=== PATIENT | male | born 1965 | race Caucasian/White ===

== ENCOUNTER 2016-09-28 19:52 | Inpatient (IN) | payer SELFPAY ==
[2016-09-28] VITALS (14 sets, daily range): BP systolic 109–244; BP diastolic 60–130; PULSE 109–139; RESP 18–24; TEMP 98.7; O2SAT 95–100
[~2016-09-28] VITALS: Ht 177.8 cm; Wt 118.0 kg
[~2016-09-28 19:52] MED LIST: HYDR12.56 PO; PRIL20TA2 PO
[2016-09-28] MEDS ORDERED: PANTOPRAZOLE INJ 80 MG in SODIUM CHLORIDE 0.9% INJ 35 ML IV ONE (20:15)
[2016-09-28] MEDS ORDERED: OCTREOTIDE INJ 500 MCG in SODIUM CHLORID 0.9% 500 ML INJ 500 ML IV SCH (20:15)
[2016-09-28] MEDS ORDERED: SODIUM CHLORIDE 0.9% FLUSH 5 ML FLUSH IVF PRN (20:15)
[2016-09-28] MEDS ORDERED: ETOMIDATE 40 MG/20 ML VIAL ONE (20:23)
[2016-09-28] MEDS ORDERED: OMEP20TA PO (20:23)
[2016-09-28] MEDS ORDERED: SUCCINYLCHOLINE CHLORIDE 200 MG/10 ML VIAL ONE (20:23)
[2016-09-28] MEDS ORDERED: PROPOFOL 1000 MG/100 ML INJ 100 ML ONE (20:34)
[2016-09-28] MEDS ORDERED: ETOMIDATE 20 MG/10 ML VIAL IV PUSH ONE (20:45)
[2016-09-28] MEDS ORDERED: SUCCINYLCHOLINE CHLORIDE 200 MG/10 ML VIAL IV PUSH ONE (20:45)
[2016-09-28] MEDS: PROPOFOL 1000 MG/100 ML INJ 100 ML IV SCH (20:46)
[2016-09-28 20:48] LABS: AUTOMATED NEUTROPHIL # 13.9 TH/MM3 (1.8-7.7); BASOPHIL # 0.1 TH/MM3 (0-0.2); BASOPHIL % 0.4 % (0.0-2.0); EOSINOPHIL % 0.1 % (0.0-4.0); HEMATOCRIT 33.1 % (39.0-51.0); HEMO FLAGS DIFF FINAL; LYMPH % 7.3 % (9.0-44.0); LYMPHOCYTE # 1.2 TH/MM3 (1.0-4.8); MEAN CELL VOLUME 94.7 FL (80.0-100.0); MEAN CORPUSCULAR HEMOGLOBIN 32.6 PG (27.0-34.0); MEAN CORPUSCULAR HGB CONC 34.4 % (32.0-36.0); MONO % 7.3 % (0.0-8.0); NEUT % 84.9 % (16.0-70.0); PLATELET COUNT 124 TH/MM3 (150-450); RED BLOOD COUNT 3.49 MIL/MM3 (4.50-5.90); RED CELL DISTRIBUTION WIDTH 13.9 % (11.6-17.2); WHITE BLOOD COUNT 16.4 TH/MM3 (4.0-11.0)
[2016-09-28 21:12] LABS: INTERNATIONAL NORMALIZED RATIO 1.5 RATIO; PROTHROMBIN TIME - PATIENT 16.3 SEC (9.8-11.6)
[2016-09-28] MEDS ORDERED: LACTULOSE SYRUP 20 GM/30 ML CUP OG-TUBE ONE (21:30)
[2016-09-28] MEDS ORDERED: fentaNYL DRIP 250 ML IV SCH ×2 (21:30→21:45)
[2016-09-28] MEDS ORDERED: fentaNYL DRIP 250 ML ONE (21:31)
--- NOTE | 2016-09-28 21:33 | PD ---
HPI Chief Complaint: Altered Mental Status Time Seen by Provider: 20:06 Travel History International Travel<30 days: No Contact w/Intl Traveler<30days: No Traveled to known affect area: No History of Present Illness HPI 50yo M with PMH of hep C, chronic alcohol abuse, cirrhosis presents to the ED with altered mental status, and hematemesis today. Pt has been having distended abdomen for quite some time. As per EVAC, pt was informed that he was going to 5 years ago but continues to drink daily. Pt opens eyes to movement but is not answering question. Becomes agitated and moves extremities but not to command. Pt is confused and actively vomiting black emesis. Pt emergently intubated in the ED. PFSH Past Medical History Anemia: Yes (RECENT GI BLEED) Gastrointestinal Disorders: Yes (GI BLEED) GERD: Yes Hypertension: Yes Social History Alcohol Use: Yes Tobacco Use: No Substance Use: No Allergies-Medications (Allergen,Severity, Reaction): Coded Allergies: No Known Allergies (Unverified , 09/28/16) Reported Meds & Prescriptions Reported Meds & Active Scripts Active Reported Omeprazole 20 Mg Tab 20 Mg PO DAILY Review of Systems ROS Limitations: Altered Mental Status Physical Exam Narrative GENERAL: 50yo M with altered mental status. SKIN: Warm and dry. HEAD: Atraumatic. Normocephalic. EYES: Pupils equal and round. No scleral icterus. No injection or drainage. ENT: No nasal bleeding or discharge. Mucous membranes pink and moist. NECK: Trachea midline. No JVD. CARDIOVASCULAR: Tachycardic at 114bpm. No murmur appreciated. RESPIRATORY: No accessory muscle use. Clear to auscultation. Breath sounds equal bilaterally. GASTROINTESTINAL: Abdomen distended. No point tenderness elicited on exam. MUSCULOSKELETAL: No obvious deformities. No clubbing. No cyanosis. No edema. NEUROLOGICAL: Lethargic. Opens eyes but not spontaneously. Withdraws from pain in extremities. Data Data Last Documented VS Vital Signs Date Time Temp Pulse Resp B/P Pulse Ox O2 Delivery O2 Flow Rate FiO2 09/28/16 21:14 132 139/101 100 Ventilator 09/28/16 20:55 98.7 09/28/16 20:45 100 09/28/16 20:17 18 Orders Complete Blood Count With Diff (09/28/16 20:07) Comprehensive Metabolic Panel (09/28/16 20:07) Lipase (09/28/16 20:07) Ammonia (09/28/16 20:07) Prothrombin Time / Inr (Pt) (09/28/16 20:07) Act Partial Throm Time (Ptt) (09/28/16 20:07) Alcohol (Ethanol) (09/28/16 20:07) Urinalysis - C+S If Indicated (09/28/16 20:07) Type And Screen (09/28/16 20:07) Ecg Monitoring (09/28/16 20:07) Iv Access Insert/Monitor (09/28/16 20:07) Oximetry (09/28/16 20:07) Sodium Chloride 0.9% Flush (Ns Flush) (09/28/16 20:15) Octreotide Inj (Sandostatin Inj) (09/28/16 20:15) Pantoprazole Inj (Protonix Inj) (09/28/16 20:15) Pantoprazole Inj (Protonix Inj) (09/28/16 20:15) Blood Culture (09/28/16 20:07) Lactic Acid Sepsis Protocol (09/28/16 20:07) Ct Brain W/O Iv Contrast(Rout) (09/28/16 ) Etomidate Inj (Amidate Inj) (09/28/16 20:23) Succinylcholine Inj (Quelicin Inj) (09/28/16 20:23) Propofol 1000 Mg/100 Ml Inj (Diprivan 10 (09/28/16 20:34) Chest, Single Ap (09/28/16 ) Propofol 1000 Mg/100 Ml Inj (Diprivan 10 (09/28/16 20:45) ^ Infusion (09/28/16 20:39) RASS (09/28/16 20:39) Neurological Rass Scale CARLOS ALBERTO.Q2H (09/28/16 20:39) Succinylcholine Inj (Quelicin Inj) (09/28/16 20:45) Etomidate Inj (Amidate Inj) (09/28/16 20:45) Restraints Non-Violent CARLOS ALBERTO.Q3H (09/28/16 20:56) Insert Temp Sensing Chi Cath (09/28/16 20:56) Claudia-Gastric Tube Insert/Mon (09/28/16 20:56) Troponin I (09/28/16 20:58) Fentanyl Drip (Fentanyl Drip) (09/28/16 21:30) Lactulose Liq (Lactulose Liq) (09/28/16 21:30) Fentanyl Drip (Fentanyl Drip) (09/28/16 21:31) Electrocardiogram (09/28/16 18:55) Admit Order (Ed Use Only) (09/28/16 21:34) Labs Laboratory Tests Test 09/28/16 09/28/16 20:20 20:50 White Blood Count 16.4 TH/MM3 Red Blood Count 3.49 MIL/MM3 Hemoglobin 11.4 GM/DL Hematocrit 33.1 % Mean Corpuscular Volume 94.7 FL Mean Corpuscular Hemoglobin 32.6 PG Mean Corpuscular Hemoglobin 34.4 % Concent Red Cell Distribution Width 13.9 % Platelet Count 124 TH/MM3 Mean Platelet Volume 10.5 FL Neutrophils (%) (Auto) 84.9 % Lymphocytes (%) (Auto) 7.3 % Monocytes (%) (Auto) 7.3 % Eosinophils (%) (Auto) 0.1 % Basophils (%) (Auto) 0.4 % Neutrophils # (Auto) 13.9 TH/MM3 Lymphocytes # (Auto) 1.2 TH/MM3 Monocytes # (Auto) 1.2 TH/MM3 Eosinophils # (Auto) 0.0 TH/MM3 Basophils # (Auto) 0.1 TH/MM3 CBC Comment DIFF FINAL Differential Comment Prothrombin Time 16.3 SEC Prothromb Time International 1.5 RATIO Ratio Activated Partial 33.0 SEC Thromboplast Time Lactic Acid Level 4.6 mmol/L Ammonia 100 MCMOL/L Blood Type B POSITIVE Antibody Screen NEGATIVE Urine Color YELLOW Urine Turbidity CLEAR Urine pH 7.0 Urine Specific Jackson 1.031 Urine Protein TRACE mg/dL Urine Glucose (UA) NEG mg/dL Urine Ketones 10 mg/dL Urine Occult Blood NEG Urine Nitrite NEG Urine Bilirubin NEG Urine Urobilinogen 4.0 MG/DL Urine Leukocyte Esterase NEG Urine RBC 1 /hpf Urine WBC 2 /hpf Urine Renal Epithelial Cells <1 /hpf Urine Mucus FEW /lpf Microscopic Urinalysis Comment CULT NOT INDICATED MDM Medical Decision Making Medical Screen Exam Complete: Yes Emergency Medical Condition: Yes Interpretation(s) Laboratory Tests Test 09/28/16 09/28/16 20:20 20:50 White Blood Count 16.4 TH/MM3 (4.0-11.0) Red Blood Count 3.49 MIL/MM3 (4.50-5.90) Hemoglobin 11.4 GM/DL (13.0-17.0) Hematocrit 33.1 % (39.0-51.0) Mean Corpuscular Volume 94.7 FL (80.0-100.0) Mean Corpuscular Hemoglobin 32.6 PG (27.0-34.0) Mean Corpuscular Hemoglobin 34.4 % Concent (32.0-36.0) Red Cell Distribution Width 13.9 % (11.6-17.2) Platelet Count 124 TH/MM3 (150-450) Mean Platelet Volume 10.5 FL (7.0-11.0) Neutrophils (%) (Auto) 84.9 % (16.0-70.0) Lymphocytes (%) (Auto) 7.3 % (9.0-44.0) Monocytes (%) (Auto) 7.3 % (0.0-8.0) Eosinophils (%) (Auto) 0.1 % (0.0-4.0) Basophils (%) (Auto) 0.4 % (0.0-2.0) Neutrophils # (Auto) 13.9 TH/MM3 (1.8-7.7) Lymphocytes # (Auto) 1.2 TH/MM3 (1.0-4.8) Monocytes # (Auto) 1.2 TH/MM3 (0-0.9) Eosinophils # (Auto) 0.0 TH/MM3 (0-0.4) Basophils # (Auto) 0.1 TH/MM3 (0-0.2) CBC Comment DIFF FINAL Differential Comment Prothrombin Time 16.3 SEC (9.8-11.6) Prothromb Time International 1.5 RATIO Ratio Activated Partial 33.0 SEC Thromboplast Time (24.3-30.1) Lactic Acid Level 4.6 mmol/L (0.4-2.0) Ammonia 100 MCMOL/L (11-32) Blood Type B POSITIVE Antibody Screen NEGATIVE Urine Color YELLOW (YELLW/STRAW) Urine Turbidity CLEAR (CLEAR) Urine pH 7.0 (5.0-8.5) Urine Specific Jackson 1.031 (1.002-1.035) Urine Protein TRACE mg/dL (NEG-TRACE) Urine Glucose (UA) NEG mg/dL (NEG) Urine Ketones 10 mg/dL (NEG) Urine Occult Blood NEG (NEG) Urine Nitrite NEG (NEG) Urine Bilirubin NEG (NEG) Urine Urobilinogen 4.0 MG/DL (LESS THAN 2.0) Urine Leukocyte Esterase NEG (NEG) Urine RBC 1 /hpf (0-3) Urine WBC 2 /hpf (0-5) Urine Renal Epithelial Cells <1 /hpf (NONE) Urine Mucus FEW /lpf (OCC) Microscopic Urinalysis Comment CULT NOT INDICATED Differential Diagnosis Hepatic encephalopathy vs. Variceal bleed vs. sepsis Narrative Course 50yo M with cirrhosis here with altered mental status. Pt is actively vomiting coffee ground emesis. Impression is hepatic encephalopathy with upper GI bleed. Pt emergently intubated. BP initially 167/90. HR 114. Labs reviewed, leukocytosis at 16.4. H/H 11.4/33.1. Thrombocytopenia at 124. Ammonia is elevated at 100. Lactulose ordered via OG tube. Lactic acid elevated at 4.6. CMP is still pending. Pt placed on octreotide drip and pantoprazole bolus and drip. Pt sedated with propofol and fentanyl. CXR showed ET tube at heidi, suggest pullback by 3cm. No PTX. Discussed pt with Dr. Box and Dr. King and accepted to Dr. King's service. Critical Care Narrative Aggregate critical care time was 50 minutes. Time to perform other separately billable procedures was not included in the critical care time. My time did not include minutes spent treating any other patients simultaneously or on activities that did not directly contribute to the patient's treatment. The services I provided to this patient were to treat and/or prevent clinically significant deterioration that could result in: cardiovascular collapse or . I provided critical care services requiring my management, as noted below: Chart data review, documentation time, medication orders and management, vital sign assessments/reviewing monitor data, ordering and reviewing lab tests, ordering and interpreting/reviewing x-rays and diagnostic studies, care of the patient and discussion of the patient with the admitting physicians. Procedures Procedure Narrative The patient was put in optimal position for the procedure. Rapid sequence intubation was initiated by me using 30 milligrams of etomidate IV and 150 milligrams of succinylcholine IV. The patient was intubated with a 8.0 cuffed endotracheal tube. Tube placement was confirmed by visualization of the tube and balloon passing through the cords, capnometry and subsequent chest x-ray. Breath sounds were equal and well aerated bilaterally postintubation. No breath sounds over stomach. Patient tolerated procedure well. Diagnosis Primary Impression: Hepatic encephalopathy Additional Impression: GI bleed Qualified Code: K92.1 - Gastrointestinal hemorrhage with melena Admitting Information Admitting Physician Requests: Admit Danii De Jesus DO Sep 28, 2016 21:33
[2016-09-28] MEDS ORDERED: METOCLOPRAMIDE HCL 10 MG/2 ML VIAL IV PRN (21:45)
[2016-09-28] MEDS ORDERED: SODIUM CHLORIDE 0.9% FLUSH 5 ML FLUSH IV FLUSH PRN (21:45)
[2016-09-28] MEDS ORDERED: MIDAZOLAM 100 MG/ML INJ 100 ML IV SCH (21:45)
[2016-09-28] MEDS ORDERED: MORPHINE SULFATE 4 MG/ML INJ IV PRN (21:45)
[2016-09-28] MEDS ORDERED: CHLORHEXIDINE GLUCONATE 2 % 1 PACK (2 CLOTHS) TOP PRN (21:45)
[2016-09-28] MEDS ORDERED: LORazepam 2 MG/ML VIAL IV PRN (21:45)
[2016-09-28] MEDS ORDERED: MISCELLANEOUS NURSING INFORMATION XX SCH (21:45)
[2016-09-28] MEDS ORDERED: PANTOPRAZOLE SODIUM 40 MG VIAL IV SCH (21:45)
[2016-09-28] MEDS ORDERED: ACETAMINOPHEN 325 MG TAB PO PRN (21:45)
[2016-09-28] MEDS ORDERED: ONDANSETRON HCL 4 MG/2 ML VIAL IV PRN (21:45)
--- NOTE | 2016-09-28 21:46 | HHI.HP ---
HPI Service Critical Care Medicine Primary Care Physician No Primary Care Physician Admission Diagnosis GI bleed, hepatic encaphalopathy Diagnosis: Travel History International Travel<30 Days: No Contact w/Intl Traveler <30 Da: No Traveled to Known Affected Are: No History of Present Illness 50-year-old gentleman with past medical history of hepatitis C, chronic alcohol abuse, cirrhosis, previous upper GI bleed, presents today with altered mental status. He has been having distended abdomen for quite sometime time. He was found completely altered almost unresponsive by his significant other called EVAC. Per her statement patient was informed that he was going to 5 years ago if he continues to drink alcohol. He has been drinking daily until today. He was very altered and extremely agitated in the emergency department and was intubated for airway protection by ER attending. Review of Systems ROS Unable to obtain patient is intubated Past Family Social History Allergies: Coded Allergies: No Known Allergies (Unverified , 09/28/16) Past Medical History Alcoholic liver cirrhosis Upper GI bleed Ascites Past Surgical History Unable to obtain Reported Medications Reported Meds & Active Scripts Active Reported Omeprazole 20 Mg Tab 20 Mg PO DAILY Active Ordered Medications Current Medications Medications (Trade) Dose Ordered Sig/Theresa Route PRN Reason Start Time Stop Time Status Last Admin Dose Admin Octreotide Acetate 500 mcg/ Sodium Chloride 500.5 ml @ 50 mls/hr Q10H IV 09/28/16 20:15 09/29/16 00:59 09/28/16 21:52 Pantoprazole Sodium 80 mg/ Sodium Chloride 100 ml @ 10 mls/hr Q10H IV 09/28/16 20:15 09/28/16 21:51 Propofol 100 ml @ 0 mls/hr TITRATE IV 09/28/16 20:45 09/28/16 20:46 Sodium Chloride (NS 1000 ml Inj) 1,000 ml @ 125 mls/hr Q8H IV 09/28/16 22:00 09/28/16 23:22 IV Flush (NS Flush) 2 ml UNSCH PRN IV FLUSH FLUSH AFTER USING IV ACCESS 09/28/16 21:45 IV Flush (NS Flush) 2 ml BID IV FLUSH 09/29/16 09:00 Acetaminophen (Tylenol) 650 mg Q6H PRN PO PAIN 1-10 AND/OR FEVER >101F 09/28/16 21:45 Morphine Sulfate (Morphine Inj) 2 mg Q2H PRN IV PAIN SCALE 6 TO 10 09/28/16 21:45 Lorazepam (Ativan Inj) 1 mg Q1H PRN IV Agitation/Sedation 09/28/16 21:45 Artificial Tears (Tears Naturale Opth Soln) 1 drop TID EACH EYE 09/29/16 09:00 Ondansetron HCl (Zofran Inj) 4 mg Q6H PRN IV NAUSEA OR VOMITING 09/28/16 21:45 Metoclopramide HCl (Reglan Inj) 10 mg Q6H PRN IV NAUSEA OR VOMITING 09/28/16 21:45 Docusate Sodium (Colace Liq) 100 mg Q12H G-TUBE 09/28/16 22:00 09/28/16 23:22 Miscellaneous Information 1 [id number] XX 09/28/16 21:45 Chlorhexidine Gluconate (Chlorhexidine 2% Cloth) 3 pack Taper DAILY@04 TOP 09/29/16 04:00 09/25/17 03:59 Chlorhexidine Gluconate 3 pack 3 pack UNSCH PRN TOP HYGIENIC CARE 09/28/16 21:45 Fentanyl Citrate 250 ml @ 0 mls/hr TITRATE IV 09/28/16 21:45 Midazolam HCl 100 ml @ 0 mls/hr TITRATE IV 09/28/16 21:45 Ceftriaxone Sodium/Sodium Chloride (Rocephin Inj/NS Inj) 100 ml @ 200 mls/hr Q24H IV 09/28/16 22:00 10/04/16 22:29 09/28/16 23:23 Lactulose 30 ml 30 ml QID PO 09/29/16 09:00 Octreotide Acetate/Sodium Chloride (SandoSTATIN INJ/ NS 500 ml Inj) 500.0 ml @ 25 mls/hr Q20H IV 09/29/16 01:00 Family History Noncontributory Social History Drinks vodka daily Smokes pack per day Denies illicit drug abuse Physical Exam Vital Signs Vital Signs Date Time Temp Pulse Resp B/P Pulse Ox O2 Delivery O2 Flow Rate FiO2 09/28/16 21:44 112 110/61 100 Ventilator 09/28/16 21:14 132 139/101 100 Ventilator 09/28/16 21:03 132 217/105 100 Ventilator 09/28/16 20:55 98.7 139 244/130 100 Ventilator 09/28/16 20:45 98 100 09/28/16 20:17 109 18 167/90 99 Room Air 09/28/16 19:54 117 24 167/90 95 Physical Exam GENERAL: Disheveled elderly man SKIN: Warm and dry. HEAD: Normocephalic. EYES: Positive scleral icterus. No injection or drainage. NECK: Supple, trachea midline. No JVD or lymphadenopathy. CARDIOVASCULAR: Regular rate and rhythm without murmurs, gallops, or rubs. RESPIRATORY: Breath sounds equal bilaterally. No accessory muscle use. GASTROINTESTINAL: Abdomen soft, non-tender, ascites MUSCULOSKELETAL: No cyanosis, plus pitting edema In all 4 extremities BACK: Nontender without obvious deformity. No CVA tenderness. Laboratory Laboratory Tests Test 09/28/16 20:20 White Blood Count 16.4 Red Blood Count 3.49 Hemoglobin 11.4 Hematocrit 33.1 Mean Corpuscular Volume 94.7 Mean Corpuscular Hemoglobin 32.6 Mean Corpuscular Hemoglobin 34.4 Concent Red Cell Distribution Width 13.9 Platelet Count 124 Mean Platelet Volume 10.5 Neutrophils (%) (Auto) 84.9 Lymphocytes (%) (Auto) 7.3 Monocytes (%) (Auto) 7.3 Eosinophils (%) (Auto) 0.1 Basophils (%) (Auto) 0.4 Neutrophils # (Auto) 13.9 Lymphocytes # (Auto) 1.2 Monocytes # (Auto) 1.2 Eosinophils # (Auto) 0.0 Basophils # (Auto) 0.1 CBC Comment DIFF FINAL Differential Comment Prothrombin Time 16.3 Prothromb Time International 1.5 Ratio Activated Partial 33.0 Thromboplast Time Lactic Acid Level 4.6 Ammonia 100 Blood Type B POSITIVE Antibody Screen NEGATIVE Result Diagram: 09/28/162019 Assessment and Plan Problem List: (1) Hepatic encephalopathy ICD Code: K72.90 Status: Acute (2) GI bleed ICD Code: K92.2 Status: Acute Assessment and Plan Upper GI bleeding - Due to alcoholic liver cirrhosis - Protonix IV twice a day - Octreotide drip - GI consult - Rocephin prophylactically End-stage liver disease with cirrhosis - Monitor coagulopathy - Palliative care consult - Supportive care Encephalopathy - Hyperammonemia - Lactulose 4 times a day - Monitor trend daily Alcohol dependency - Versed drip - CIWA protocol DVT GI prophylaxis - Teds SCDs Protonix twice a day Critical Care: The total critical care time was 35 minutes. Time to perform other separately billable procedures was not included in the critical care time. Problem Qualifiers (1) GI bleed: Qualified Code: K92.1 - Gastrointestinal hemorrhage with melena Ashish King MD Sep 28, 2016 21:45
[2016-09-28] MEDS: PANTOPRAZOLE INJ 80 MG in SODIUM CHLORIDE 0.9% INJ 100 ML IV SCH (21:51)
--- NOTE | 2016-09-28 21:55 | RADRPT ---
EXAM DATE/TIME: 09/28/2016 21:14 [facility] COMPARISON: No previous studies available for comparison. INDICATIONS : Post intubation. MEDICAL HISTORY : Unobtainable. SURGICAL HISTORY : Unobtainable. ENCOUNTER: Initial ACUITY: 1 day PAIN SCORE: Non-responsive. LOCATION: Bilateral chest FINDINGS: There is an endotracheal tube in place. The tip is at the heidi. There is an NG tube in the stomach. No pneumothorax. The lungs are grossly clear. The heart size is mildly enlarged. The bony structures are grossly intact. CONCLUSION: 1. ET tube tip at heidi. Suggest pullback by 3 cm. 2. No evidence of pneumothorax. Navin Feng MD on September 28, 2016 at 21:52 Board Certified Radiologist. This report was verified electronically.
[2016-09-28 22:23] LABS: BLOOD GAS BASE EXCESS 0.5 mmol/L (-2-2); BLOOD GAS CARBOXYHEMOGLOBIN 1.5 % (0-4); BLOOD GAS HCO3 25 mmol/L (22-26); BLOOD GAS METHEMOGLOBIN 0.5 % (0-2); BLOOD GAS O2 HGB SATURATION 98 % (90-100); BLOOD GAS OXYGEN CONTENT 15.2 Vol % (12.0-20.0); BLOOD GAS PCO2 43 mmHg (38-42); BLOOD GAS PO2 281 mmHG (61-120); BLOOD GAS TOTAL HGB 10.5 G/DL (12.0-16.0); CRITICAL VALUE NO; OXYGEN DEVICE VENTILATOR; TEMP CORR TO 98.6
[2016-09-28 22:24] LABS: DRAW SITE RT RADIAL; FIO2 100 %; NUMBER OF ARTERIAL PUNCTURES 1; STAT YES; ULNAR PULSE PRESENT; VENT SETTINGS AC/16/550/PEEP 5
[2016-09-28 22:30] LABS: LACTIC ACID GHOST NOT REPORTABLE
[2016-09-28] MEDS: RESP: ALBUTEROL 2.5 MG/IPRATROPIUM 0.5 MG NEB (PRN) INH (22:33)
[2016-09-28] MEDS ORDERED: MIDAZOLAM 100 MG/ML INJ 100 ML ONE (22:46)
[2016-09-28 23:06] LABS: BLOOD, URINE NEG (NEG); GLUCOSE,URINE NEG (NEG); KETONE, URINE 10 mg/dL (NEG); MUCUS URINE FEW /lpf (OCC); NITRITE,URINE NEG (NEG); RENAL EPITHELIAL CELLS <1 /hpf; URINE COLOR YELLOW (YELLW/STRAW)
[2016-09-28 23:07] LABS: COMMENT (UR) CULT NOT INDICATED; CULTURE IF INDICATED CULT NOT INDICATED
[2016-09-28] MEDS: DOCUSATE SODIUM 100 MG/10 ML UDC G-TUBE SCH (23:22)
[2016-09-28] MEDS: SODIUM CHLOR 0.9% 1000 ML INJ 1,000 ML IV SCH (23:22)
[2016-09-28] MEDS: cefTRIAXone INJ 1,000 MG in SODIUM CHLORIDE 0.9% INJ 100 ML IV SCH (23:23)
[2016-09-29] VITALS (23 sets, daily range): BP systolic 102–117; BP diastolic 51–64; PULSE 70–100; RESP 16–18; TEMP 97.8–98.4; O2SAT 95–100
[2016-09-29 00:43] LABS: ALT (GPT) 16 U/L (12-78); ANION GAP 12 MEQ/L (5-15); AST (GOT) 75 U/L (15-37); BICARBONATE 25.7 MEQ/L (21.0-32.0); BLOOD UREA NITROGEN 20 MG/DL (7-18); CHLORIDE 102 MEQ/L (98-107); GLOMERULAR FILTRATION RATE 116 ML/MIN (>89); POTASSIUM 4.4 MEQ/L (3.5-5.1); SODIUM (NA) 140 MEQ/L (136-145)
[2016-09-29 00:46] LABS: ALKALINE PHOSPHATASE 159 U/L (45-117); TOTAL BILIRUBIN ADULT 3.7 MG/DL (0.2-1.0)
[2016-09-29] MEDS ORDERED: OCTREOTIDE INJ 500 MCG in SODIUM CHLORID 0.9% 500 ML INJ 499.5 ML IV SCH (01:00)
--- NOTE | 2016-09-29 02:05 | RADRPT ---
EXAM DATE/TIME: 09/29/2016 01:41 [facility] COMPARISON: No previous studies available for comparison. INDICATIONS : Altered mental status along with vomiting. RADIATION DOSE: 38.10 CTDIvol (mGy) MEDICAL HISTORY : Hypertension. Cirrhosis. SURGICAL HISTORY : None. ENCOUNTER: Initial ACUITY: 1 day PAIN SCALE: 2/10 LOCATION: cranial TECHNIQUE: Multiple contiguous axial images were obtained of the head. Using automated exposure control and adj ustment of the mA and/or kV according to patient size, radiation dose was kept as low as reasonably a chievable to obtain optimal diagnostic quality images. FINDINGS: CEREBRUM: The ventricles are normal for age. No evidence of midline shift, mass lesion, hemorrhage or acute in farction. No extra-axial fluid collections are seen. POSTERIOR FOSSA: The cerebellum and brainstem are intact. The 4th ventricle is midline. The cerebellopontine angle i s unremarkable. EXTRACRANIAL: The visualized portion of the orbits is intact. SKULL: The calvaria is intact. No evidence of skull fracture. CONCLUSION: No acute intracranial findings. Eric Villalobos MD on September 29, 2016 at 2:02 Board Certified Radiologist. This report was verified electronically.
[2016-09-29] MEDS ORDERED: ALBUMIN HUMAN 5% 25 GM/500 ML BOTTLE IV SCH (04:15)
[2016-09-29] MEDS: PROPOFOL 1000 MG/100 ML INJ 100 ML IV SCH ×3 (04:38→21:03)
[2016-09-29] MEDS: ALBUMIN HUMAN 5% 25 GM/500 ML BOTTLE IV SCH ×4 (04:43→22:11)
[2016-09-29] MEDS: CHLORHEXIDINE GLUCONATE 2 % 1 PACK (2 CLOTHS) TOP SCH (04:47)
[2016-09-29 05:38] LABS: AUTOMATED NEUTROPHIL # 12.7 TH/MM3 (1.8-7.7); BASOPHIL # 0.1 TH/MM3 (0-0.2); BASOPHIL % 0.3 % (0.0-2.0); EOSINOPHIL % 0.2 % (0.0-4.0); HEMATOCRIT 29.1 % (39.0-51.0); LYMPH % 10.7 % (9.0-44.0); LYMPHOCYTE # 1.7 TH/MM3 (1.0-4.8); MEAN CELL VOLUME 97.1 FL (80.0-100.0); MEAN CORPUSCULAR HEMOGLOBIN 32.3 PG (27.0-34.0); MEAN CORPUSCULAR HGB CONC 33.3 % (32.0-36.0); MONO % 8.2 % (0.0-8.0); NEUT % 80.6 % (16.0-70.0); PLATELET COUNT 80 TH/MM3 (150-450); RED BLOOD COUNT 2.99 MIL/MM3 (4.50-5.90); RED CELL DISTRIBUTION WIDTH 14.1 % (11.6-17.2); WHITE BLOOD COUNT 15.8 TH/MM3 (4.0-11.0)
[2016-09-29 05:40] LABS: HEMO FLAGS AUTO DIFF
[2016-09-29 06:02] LABS: ALT (GPT) 15 U/L (12-78); ANION GAP 9 MEQ/L (5-15); AST (GOT) 79 U/L (15-37); BICARBONATE 28.4 MEQ/L (21.0-32.0); BLOOD UREA NITROGEN 22 MG/DL (7-18); CHLORIDE 104 MEQ/L (98-107); GLOMERULAR FILTRATION RATE 135 ML/MIN (>89); MAGNESIUM 1.6 MG/DL (1.5-2.5); POTASSIUM 4.4 MEQ/L (3.5-5.1); SODIUM (NA) 141 MEQ/L (136-145)
[2016-09-29 06:04] LABS: ALKALINE PHOSPHATASE 130 U/L (45-117); CREATINE KINASE 475 U/L (39-308); TOTAL BILIRUBIN ADULT 2.7 MG/DL (0.2-1.0)
[2016-09-29] MEDS: SODIUM CHLOR 0.9% 1000 ML INJ 1,000 ML IV SCH ×3 (06:29→22:08)
[2016-09-29] MEDS: PANTOPRAZOLE INJ 80 MG in SODIUM CHLORIDE 0.9% INJ 100 ML IV SCH ×2 (06:29→18:03)
[2016-09-29 06:35] LABS: BLOOD GAS BASE EXCESS 2.8 mmol/L (-2-2); BLOOD GAS CARBOXYHEMOGLOBIN 1.9 % (0-4); BLOOD GAS HCO3 28 mmol/L (22-26); BLOOD GAS METHEMOGLOBIN 0.8 % (0-2); BLOOD GAS O2 HGB SATURATION 94 % (90-100); BLOOD GAS OXYGEN CONTENT 12.6 Vol % (12.0-20.0); BLOOD GAS PCO2 48 mmHg (38-42); BLOOD GAS PO2 93 mmHg (61-120); BLOOD GAS TOTAL HGB 9.4 G/DL (12.0-16.0); CRITICAL VALUE NO; FIO2 45 %; OXYGEN DEVICE VENTILATOR; TEMP CORR TO 98.6; VENT SETTINGS AC/RR16/VT550/PEEP5
[2016-09-29 06:36] LABS: DRAW SITE LT RADIAL; NUMBER OF ARTERIAL PUNCTURES 1; STAT NO; ULNAR PULSE PRESENT
[2016-09-29 07:17] LABS: CKMB 15.8 NG/ML (0.5-3.6)
[2016-09-29 07:32] LABS: OVALOCYTES 1+ (NORMAL); PLATELET ESTIMATE SMEAR LOW (NORMAL); PLATELET MORPHOLOGY NORMAL (NORMAL); SCAN/DIFF AUTO DIFF CONFIRMED
[2016-09-29] MEDS: ARTIFICIAL TEARS OPTH SOLN 15 ML BTL EACH EYE SCH ×3 (08:48→18:05)
[2016-09-29] MEDS: LACTULOSE SYRUP 20 GM/30 ML CUP PO SCH ×4 (08:49→20:49)
[2016-09-29] MEDS: DOCUSATE SODIUM 100 MG/10 ML UDC G-TUBE SCH ×2 (08:49→22:11)
[2016-09-29] MEDS: SODIUM CHLORIDE 0.9% FLUSH 5 ML FLUSH IV FLUSH SCH ×2 (09:00→20:49)
--- NOTE | 2016-09-29 10:28 | PD.CONS ---
HPI History of Present Illness This is a 50 year old male with past medical history of hepatitis C, chronic alcohol abuse, cirrhosis, previous upper GI bleed, presents today with altered mental status. Patient is intubated on a vent. HPI was obtained from significant other. Patient had a good dinner on the but didn't feel good after wards and had hematemesis that consisted of dark and bright red emesis for a total of 5 times, she also noted some black tarry stools as well, yesterday morning patient was still okay. Significant other had to leave to run errands and when she came home around 6 pm, patient was unresponsive. He has been having distended abdomen and swollen purple feet for quite sometime time. Patient has been drinking daily until today. He is not insured and hasn't been following with health provider of the liver issues. He takes Aspirin and OTC Tylenol. Currently patient is vented, has OGT to LIWS with coffee ground emesis noted. hgb from 11.4 ---> 9.7. Ammonia was 114 (Sudhir Mendoza) PFSH Past Medical History - Alcoholic liver cirrhosis - Upper GI bleed - Ascites - Alcohol abuse Past Surgical History None (Sudhir Mendoza) Coded Allergies: No Known Allergies (Unverified , 09/28/16) Medications Current Medications Medications (Trade) Dose Ordered Sig/Theresa Route Start Time Stop Time Status Last Admin Pantoprazole Sodium 80 mg/ Sodium Chloride 100 ml @ 10 mls/hr Q10H IV 09/28/16 20:15 09/29/16 06:29 Propofol 100 ml @ 0 mls/hr TITRATE IV 09/28/16 20:45 09/29/16 04:38 (NS 1000 ml Inj) 1,000 ml @ 125 mls/hr Q8H IV 09/28/16 22:00 09/29/16 06:29 (NS Flush) 2 ml UNSCH PRN IV FLUSH 09/28/16 21:45 (NS Flush) 2 ml BID IV FLUSH 09/29/16 09:00 (Tylenol) 650 mg Q6H PRN PO 09/28/16 21:45 (Morphine Inj) 2 mg Q2H PRN IV 09/28/16 21:45 (Ativan Inj) 1 mg Q1H PRN IV 09/28/16 21:45 (Tears Naturale Opth Soln) 1 drop TID EACH EYE 09/29/16 09:00 09/29/16 08:48 (Zofran Inj) 4 mg Q6H PRN IV 09/28/16 21:45 (Reglan Inj) 10 mg Q6H PRN IV 09/28/16 21:45 (Colace Liq) 100 mg Q12H G-TUBE 09/28/16 22:00 09/29/16 08:49 Miscellaneous Information 1 Q361D XX 09/28/16 21:45 (Chlorhexidine 2% Cloth) 3 pack Taper DAILY@04 TOP 09/29/16 04:00 09/25/17 03:59 09/29/16 04:47 Chlorhexidine Gluconate 3 pack 3 pack UNSCH PRN TOP 09/28/16 21:45 Fentanyl Citrate 250 ml @ 0 mls/hr TITRATE IV 09/28/16 21:45 Midazolam HCl 100 ml @ 0 mls/hr TITRATE IV 09/28/16 21:45 (Rocephin Inj/NS Inj) 100 ml @ 200 mls/hr Q24H IV 09/28/16 22:00 10/04/16 22:29 09/28/16 23:23 Lactulose 30 ml 30 ml QID PO 09/29/16 09:00 09/29/16 08:49 (SandoSTATIN INJ/ NS 500 ml Inj) 500.0 ml @ 25 mls/hr Q20H IV 09/29/16 01:00 09/29/16 02:59 (Albumin 5% Inj) 25 gm Q6H IV 09/29/16 05:00 09/29/16 23:01 09/29/16 04:43 Family History unable to obtain Social History Drinks vodka daily Smokes pack per day Denies illicit drug abuse (Sudhir Mendoza) Review of Systems Gastrointestinal: COMPLAINS OF: Abdominal pain (patient is intubated and ROS obtained from significant other ), Black stools, Hematemesis (Sudhir Mendoza ) GI Exam Vitals I&O Vital Signs Date Time Temp Pulse Resp B/P Pulse Ox O2 Delivery O2 Flow Rate FiO2 09/29/16 08:00 75 09/29/16 08:00 97.8 74 16 108/59 98 09/29/16 08:00 45 09/29/16 07:28 99 45 09/29/16 06:00 83 09/29/16 04:01 99 45 09/29/16 04:00 45 09/29/16 04:00 80 09/29/16 04:00 97.8 79 16 117/64 99 09/29/16 02:00 87 09/29/16 01:50 100 100 09/29/16 01:00 84 09/29/16 00:29 98.0 97 18 116/57 96 09/29/16 00:15 100 50 09/29/16 00:05 100 100 09/28/16 22:35 100 100 09/28/16 22:20 137 170/87 100 Ventilator 09/28/16 22:12 136 187/95 100 09/28/16 22:10 137 163/86 100 Ventilator 09/28/16 21:50 100 45 09/28/16 21:48 100 100 09/28/16 21:45 111 109/60 100 Ventilator 09/28/16 21:44 112 110/61 100 Ventilator 09/28/16 21:14 132 139/101 100 Ventilator 09/28/16 21:03 132 217/105 100 Ventilator 09/28/16 20:55 98.7 139 244/130 100 Ventilator 09/28/16 20:45 98 100 09/28/16 20:17 109 18 167/90 99 Room Air 09/28/16 19:54 117 24 167/90 95 I/O 09/28/16 09/28/16 09/28/16 09/29/16 09/29/16 09/29/16 07:00 15:00 23:00 07:00 15:00 23:00 Intake Total 1030 ml Output Total 650 ml Balance 380 ml Intake IV Total 1030 ml Output Urine Total 500 ml Gastric Drainage Total 150 ml # Bowel Movements 1 Imaging Last Impressions Head CT 09/28/16 0000 Signed Impressions: Service Date/Time: Thursday, September 29, 2016 01:41 - CONCLUSION: No acute intracranial findings. Eric Villalobos MD Chest X-Ray 09/28/16 0000 Signed Impressions: Service Date/Time: Wednesday, September 28, 2016 21:14 - CONCLUSION: 1. ET tube tip at heidi. Suggest pullback by 3 cm. 2. No evidence of pneumothorax. Navin Feng MD Laboratory Test 09/28/16 09/28/16 09/28/16 09/28/16 20:20 20:50 21:38 22:42 White Blood Count 16.4 TH/MM3 Red Blood Count 3.49 MIL/MM3 Hemoglobin 11.4 GM/DL Hematocrit 33.1 % Mean Corpuscular Volume 94.7 FL Mean Corpuscular Hemoglobin 32.6 PG Mean Corpuscular Hemoglobin 34.4 % Concent Red Cell Distribution Width 13.9 % Platelet Count 124 TH/MM3 Mean Platelet Volume 10.5 FL Neutrophils (%) (Auto) 84.9 % Lymphocytes (%) (Auto) 7.3 % Monocytes (%) (Auto) 7.3 % Eosinophils (%) (Auto) 0.1 % Basophils (%) (Auto) 0.4 % Neutrophils # (Auto) 13.9 TH/MM3 Lymphocytes # (Auto) 1.2 TH/MM3 Monocytes # (Auto) 1.2 TH/MM3 Eosinophils # (Auto) 0.0 TH/MM3 Basophils # (Auto) 0.1 TH/MM3 CBC Comment DIFF FINAL Differential Comment Prothrombin Time 16.3 SEC Prothromb Time International 1.5 RATIO Ratio Activated Partial 33.0 SEC Thromboplast Time Lactic Acid Level 4.6 mmol/L Ammonia 100 MCMOL/L Blood Type B POSITIVE Antibody Screen NEGATIVE Urine Color YELLOW Urine Turbidity CLEAR Urine pH 7.0 Urine Specific [place] 1.031 Urine Protein TRACE mg/dL Urine Glucose (UA) NEG mg/dL Urine Ketones 10 mg/dL Urine Occult Blood NEG Urine Nitrite NEG Urine Bilirubin NEG Urine Urobilinogen 4.0 MG/DL Urine Leukocyte Esterase NEG Urine RBC 1 /hpf Urine WBC 2 /hpf Urine Renal Epithelial Cells <1 /hpf Urine Mucus FEW /lpf Microscopic Urinalysis Comment CULT NOT INDICATED Blood Gas Puncture Site RT RADIAL Blood Gas Patient Temperature 98.6 Blood Gas HCO3 25 mmol/L Blood Gas Base Excess 0.5 mmol/L Blood Gas Oxygen Saturation 98 % Arterial Blood pH 7.38 Arterial Blood Partial 43 mmHg Pressure CO2 Arterial Blood Partial 281 mmHG Pressure O2 Arterial Blood Oxygen Content 15.2 Vol % Arterial Blood 1.5 % Carboxyhemoglobin Arterial Blood Methemoglobin 0.5 % Blood Gas Hemoglobin 10.5 G/DL Oxygen Delivery Device VENTILATOR Blood Gas Ventilator Setting AC/16/550/PEEP 5 Blood Gas Inspired Oxygen 100 % Troponin I 0.56 NG/ML Sodium Level 140 MEQ/L Potassium Level 4.4 MEQ/L Chloride Level 102 MEQ/L Carbon Dioxide Level 25.7 MEQ/L Anion Gap 12 MEQ/L Blood Urea Nitrogen 20 MG/DL Creatinine 0.72 MG/DL Estimat Glomerular Filtration 116 ML/MIN Rate Random Glucose 135 MG/DL Calcium Level 8.2 MG/DL Total Bilirubin 3.7 MG/DL Aspartate Amino Transf 75 U/L (AST/SGOT) Alanine Aminotransferase 16 U/L (ALT/SGPT) Alkaline Phosphatase 159 U/L Total Protein 6.8 GM/DL Albumin 2.4 GM/DL Lipase 396 U/L Ethyl Alcohol Level LESS THAN 3 MG/DL Test 09/28/16 09/29/16 09/29/16 09/29/16 23:15 00:50 05:20 06:24 Lactic Acid Level 5.1 mmol/L 2.7 mmol/L Nasal Screen MRSA (PCR) NEGATIVE White Blood Count 15.8 TH/MM3 Red Blood Count 2.99 MIL/MM3 Hemoglobin 9.7 GM/DL Hematocrit 29.1 % Mean Corpuscular Volume 97.1 FL Mean Corpuscular Hemoglobin 32.3 PG Mean Corpuscular Hemoglobin 33.3 % Concent Red Cell Distribution Width 14.1 % Platelet Count 80 TH/MM3 Mean Platelet Volume 10.4 FL Neutrophils (%) (Auto) 80.6 % Lymphocytes (%) (Auto) 10.7 % Monocytes (%) (Auto) 8.2 % Eosinophils (%) (Auto) 0.2 % Basophils (%) (Auto) 0.3 % Neutrophils # (Auto) 12.7 TH/MM3 Lymphocytes # (Auto) 1.7 TH/MM3 Monocytes # (Auto) 1.3 TH/MM3 Eosinophils # (Auto) 0.0 TH/MM3 Basophils # (Auto) 0.1 TH/MM3 CBC Comment AUTO DIFF Differential Comment AUTO DIFF CONFIRMED Platelet Estimate LOW Platelet Morphology Comment NORMAL Ovalocytes 1+ Sodium Level 141 MEQ/L Potassium Level 4.4 MEQ/L Chloride Level 104 MEQ/L Carbon Dioxide Level 28.4 MEQ/L Anion Gap 9 MEQ/L Blood Urea Nitrogen 22 MG/DL Creatinine 0.63 MG/DL Estimat Glomerular Filtration 135 ML/MIN Rate Random Glucose 134 MG/DL Calcium Level 8.1 MG/DL Phosphorus Level 3.3 MG/DL Magnesium Level 1.6 MG/DL Total Bilirubin 2.7 MG/DL Aspartate Amino Transf 79 U/L (AST/SGOT) Alanine Aminotransferase 15 U/L (ALT/SGPT) Alkaline Phosphatase 130 U/L Ammonia 114 MCMOL/L Total Creatine Kinase 475 U/L Creatine Kinase MB 15.8 NG/ML Creatine Kinase MB % 3.3 % Total Protein 6.3 GM/DL Albumin 2.4 GM/DL Blood Gas Puncture Site LT RADIAL Blood Gas Patient Temperature 98.6 Blood Gas HCO3 28 mmol/L Blood Gas Base Excess 2.8 mmol/L Blood Gas Oxygen Saturation 94 % Arterial Blood pH 7.38 Arterial Blood Partial 48 mmHg Pressure CO2 Arterial Blood Partial 93 mmHg Pressure O2 Arterial Blood Oxygen Content 12.6 Vol % Arterial Blood 1.9 % Carboxyhemoglobin Arterial Blood Methemoglobin 0.8 % Blood Gas Hemoglobin 9.4 G/DL Oxygen Delivery Device VENTILATOR Blood Gas Ventilator Setting AC/RR16/VT550/PEEP5 Blood Gas Inspired Oxygen 45 % Test 09/29/16 08:06 Troponin I 1.34 NG/ML Date/Time Procedure Status Source Growth 09/28/16 22:41 Aerobic Blood Culture Received Blood Peripheral Pending 09/28/16 22:41 Anaerobic Blood Culture Received Blood Peripheral Pending Physical Examination HEENT: normocephalic; atraumatic; no jaundice. Throat is clear. NECK: Neck is supple, no JVD, no lymphadenopathy. CHEST: Chest is clear to auscultation and percussion. CARDIAC: Regular rate and rhythm with no murmur gallop or rubs. ABDOMEN: firm, distended, nontender; hepatosplenomegaly; bowel sounds are present in all four quadrants. Ascites EXTREMITIES:3+edema. SKIN: pale, gen. edema ELIGIBILITY MANAGER: sedated on a vent (Reji,Sudhir CERTIFIED MEDICAL ASST) Assessment and Plan Plan - GI bleed with melena and coffee ground emesis- PPI Gtt, Octreotide drip, OGT to LIWS hgb from 11.4 ---> 9.7. HPI was obtained from significant other. Patient had a good dinner on the but didn't feel good after wards and had hematemesis that consisted of dark and bright red emesis for a total of 5 times, she also noted some black tarry stools as well, yesterday morning patient was still okay. Significant other had to leave to run errands and when she came home around 6 pm, patient was unresponsive. He has been having distended abdomen and swollen purple feet for quite sometime time. Patient has been drinking daily until today. He is not insured and hasn't been following with health provider of the liver issues. He takes Aspirin and OTC Tylenol. Ammonia was 114 - Hepatic encephalopathy- ammonia of 114, lactulose - Cirrhosis secondary to EToh/elevated LFTs, continue to drink daily - Thrombocytopenia/ coagulopathy- secondary to cirrhosis - Leukocytosis- WBC 15.8 on abx - Alcohol dependency - Respiratory failure- intubated per [facility] Plan: - NPO - Cont. OGT to LIWS - CT of abd/pelvis - EGD once consents obtained and able to locate daughter and obtain phone # - Cont. lactulose - Cont. Octreotide - Cont. PPI Gtt - CBC, CMP, ammonia in am - monitor hh - Transfuse as needed - Alcohol cessation - Patient seen and examined by Dr. Boyce and myself and this note is written on his behalf. (Sudhir Mendoza) Physician Comments Seen and examined with [place], no active bleeding at this time. Call placed to [facility] in [place] message left for her to call back. Need consents for egd. CT today. Increase Octreotide and protonix. NG to LIS. Discussed with nurse. Thank you (Allyson Boyce MD) Sudhir Mendoza Sep 29, 2016 10:28 Allyson Boyce MD Sep 29, 2016 15:37
--- NOTE | 2016-09-29 10:56 | HHI.CCPN ---
Subjective Remarks/Hospital Course 50-year-old gentleman with past medical history of hepatitis C, chronic alcohol abuse, cirrhosis, previous upper GI bleed, presents today with altered mental status. He has been having distended abdomen for quite sometime time. He was found completely altered almost unresponsive by his significant other called EVAC. Per her statement patient was informed that he was going to 5 years ago if he continues to drink alcohol. He has been drinking daily until today. He was very altered and extremely agitated in the emergency department and was intubated for airway protection by ER attending. Subjective: 09/29:Afebrile. The patient maintains intubated and sedated. Noted approximately 150 cc's of coffee-ground emesis since admission to the ICU. Pending recommendations from GI which was consulted. The patient continues on octreotide and Protonix infusions, and lactulose for hyperammonemia. This a.m. abdomen appears protuberant, normoactive bowel sounds ,CT abdomen and pelvis are pending. Objective Vital Signs Date Time Temp Pulse Resp B/P Pulse Ox O2 Delivery O2 Flow Rate FiO2 09/29/16 10:00 73 09/29/16 08:00 97.8 16 108/59 98 09/29/16 08:00 45 09/28/16 22:20 Ventilator Result Diagram: 09/29/16 0520 09/29/16 0520 Other Results Laboratory Tests Test 09/28/16 09/29/16 21:38 06:24 Blood Gas Puncture Site RT RADIAL LT RADIAL Blood Gas Patient Temperature 98.6 98.6 Blood Gas HCO3 25 mmol/L 28 mmol/L (22-26) (22-26) Blood Gas Base Excess 0.5 mmol/L 2.8 mmol/L (-2-2) (-2-2) Blood Gas Oxygen Saturation 98 % (90-100) 94 % (90-100) Arterial Blood pH 7.38 7.38 (7.380-7.420) (7.380-7.420) Arterial Blood Partial 43 mmHg (38-42) 48 mmHg (38-42) Pressure CO2 Arterial Blood Partial 281 mmHG 93 mmHg Pressure O2 (61-120) (61-120) Arterial Blood Oxygen Content 15.2 Vol % 12.6 Vol % (12.0-20.0) (12.0-20.0) Arterial Blood 1.5 % (0-4) 1.9 % (0-4) Carboxyhemoglobin Arterial Blood Methemoglobin 0.5 % (0-2) 0.8 % (0-2) Blood Gas Hemoglobin 10.5 G/DL 9.4 G/DL (12.0-16.0) (12.0-16.0) Oxygen Delivery Device VENTILATOR VENTILATOR Blood Gas Ventilator Setting AC/16/550/PEEP AC/RR16/VT550/PEEP5 5 Blood Gas Inspired Oxygen 100 % 45 % Imaging Last Impressions Head CT 09/28/16 0000 Signed Impressions: Service Date/Time: Thursday, September 29, 2016 01:41 - CONCLUSION: No acute intracranial findings. Eric Villalobos MD Chest X-Ray 09/28/16 0000 Signed Impressions: Service Date/Time: Wednesday, September 28, 2016 21:14 - CONCLUSION: 1. ET tube tip at heidi. Suggest pullback by 3 cm. 2. No evidence of pneumothorax. Navin Feng MD Objective Remarks GENERAL: Critically ill-appearing male intubated and sedated SKIN: Warm and dry. HEAD: Normocephalic. EYES: Positive scleral icterus. No injection or drainage. NECK: Supple, trachea midline. No JVD or lymphadenopathy. CARDIOVASCULAR: Regular rate and rhythm systolic ejection murmur noted. RESPIRATORY: Breath sounds equal bilaterally. Mechanical ventilation GASTROINTESTINAL: Abdomen soft, protuberant, ascites noted. Normal active bowel sounds. MUSCULOSKELETAL: No cyanosis, plus pitting edema In all 4 extremities Urinary Catheter: Yes Assessment to: Continue Date of Insertion: Sep 28, 2016 A/P Problem List: (1) Hepatic encephalopathy ICD Code: K72.90 Status: Acute (2) GI bleed ICD Code: K92.2 Status: Acute Assessment and Plan Plan by systems: Neurologic: Toxic encephalopathy Alcohol dependency Hyperammonemia Neurochecks per ICU protocol, currently GCS 3T on propofol and fentanyl infusion Ammonia level 114, continue lactulose 4 times a day Follow up ammonia level daily CCT 09/29-no acute intracranial abnormalities Obtain EEG CIWA protocol/Ativan Respiratory: Acute hypoxic respiratory failure Maintain O2 sat greater than 92% Wean FiO2 to less than 50% Sedation holiday per ICU protocol daily Bronchodilators every 6 hours scheduled every 2 hours when necessary ABG-7.38/48/93/28/2.8 on FiO2 45% Cardiovascular: Elevated troponins Monitor serial troponin levels Systolic ejection murmur noted obtain Echo follow-up results Maintain MAP greater than 65mmHg Renal: Maintain Chi -- Strict I/Os FEN/GI: End-stage liver disease Cirrhosis Hepatitis C Melena Hematemesis Upper GI bleed secondary to alcoholic liver cirrhosis Continue IV fluids normal saline 125/hour MELD score 15 GI consult appreciated recommendations Follow-up CT abdomen and pelvis Continue Protonix, octreotide infusions OGT to low intermittent wall suction-monitor output Palliative care consulted Heme/ID: Acute blood loss anemia Coagulopathy secondary to end-stage liver cirrhosis Monitor serial H&H Monitor coags Rocephin q 24 prophylactic Endocrine: Hyperglycemia of critical illness -- SSI Prophylaxis: GI Prophylaxis Protonix and octreotide infusion DVT Prophylaxis -- SCDs No pharmacological DVT prophylaxis in the setting of upper GI bleeding Lines: Refer IVs 2 Dispo: Discussed with TEACHER SPECIALIST at bedside. Currently attempting to obtain contact information from daughter and to obtain consents for procedures. This patient remains critically ill with one or more organ systems which are or may become a threat to life. I have spent in excess of 58 minutes discontinuously in the care and management of this patient. This time is exclusive of procedures, and includes, but is not limited to, evaluation of the patient, review of the medical record, discussions with family, consultants, nursing staff, or respiratory therapy, and documentation in the medical record. Physician Florence Stone Problem Qualifiers (1) GI bleed: Qualified Code: K92.1 - Gastrointestinal hemorrhage with melena Florence Stone MD Sep 29, 2016 10:56 Florence Stone MD Sep 29, 2016 10:56
--- NOTE | 2016-09-29 11:18 | PD.CONS ---
Consult Service Palliative Care . Consult Requested By Dr. King . Primary Care Physician No Primary Care Physician . Reason for Consultation a. To assist with evaluation and management of symptoms including: Encephalopathy, pain b. To assist medical decision maker(s) with: better understanding of current medical conditions; weighing benefits/burdens of medical treatment options; making medical treatment decisions. . (Gisel Boss) HPI History of Present Illness Mr. Thacker is a 50-year-old male who presented to [facility] via EMS on 09/28/16 for evaluation of altered mental status and hematemesis. Patient was found by his significant other nearly unresponsive and 911 was called. Patient has a known past medical history that includes hepatitis C, chronic EtOH abuse, cirrhosis and a history of GI bleed. Patient's has had abdominal distention for quite a while. On presentation to the ED the patient was agitated, moving all extremities, not following commands. He did not respond to questions. Patient was confused and actively vomiting black emesis. He was emergently intubated in the ED for airway protection. Per significant other's report: The patient was told 5 years ago he was going to secondary to his EtOH abuse, however patient continued to drink daily. One day prior to presenting to the ED, the patient had multiple episodes of hematemesis that was dark and bright red. He had also had some black tarry stools as well. The patient's abdomen has been distended, and his feet have been swollen and purple for an extended period of time. Patient has not been following with a healthcare provider for his liver issues because he is uninsured. He takes aspirin and OTC Tylenol regularly at home. Additional diagnostic findings in the ED: * Vital signs: Pulse 117, respirations 24, BP 167/90, oxygen saturation 95% on room air, axillary temperature 98.7. * WBC: 6.4, hemoglobin 11.4, hematocrit 33.1, platelets 124, neutrophils 84.9% * Sodium: 140, potassium 4.4, chloride 102, carbon dioxide 25.7, glucose 135, calcium 8.2 * Total bilirubin: 3.7, AST 75, ALT 16, alkaline phosphatase 159 * Lactic acid: 4.6 * Ammonia: 100 * Troponin: 0.56 * Total protein: 6.8, albumin 2.4 * Lipase: 396 * PT: 16.3, INR 1.5, APTT 33.0 * Ethyl alcohol: <3 * Urinalysis normalno culture indicated * Blood culture pending * Head CT shows no acute intracranial findings. * Chest x-ray shows no evidence of pneumothorax. The lungs are grossly clear. The heart size is mildly enlarged. The bony structures are grossly intact. Patient was actively vomiting coffee-ground emesis. He was placed on a octreotide drip and a pantoprazole bolus and drip. His ammonia level was elevated at 100, started on lactulose 4 times a day. Patient was started on IV Rocephin as well. Patient was subsequently admitted to critical care for further evaluation and medical management of hepatic encephalopathy and GI bleed. Gastroenterology was consulted. Patient remains intubated and sedated on mechanical ventilator. OGT to LIWS with coffee-ground emesis noted. Patient's hemoglobin has dropped from 11.4 to 9.7. Ammonia level of 114. A CT of the abdomen/pelvis was ordered, plan for EGD after consents are obtained. Will continue to monitor hemoglobin and hematocrit and transfuse as necessary. Palliative Care was consulted to assist with symptom management and to discuss with the patient/family the benefits and burdens of his current illnesses and the options regarding future care. . Function/Cognitive Trajectory Mr. Thacker is a 50-year-old gentleman with a long history of EtOH abuse. Apparently he was told he was going to 5 years ago, however he continued to drink daily. Past medical history is significant for hepatitis C, prior GI bleeds, chronic EtOH abuse and cirrhosis. His significant other reports the patient's abdomen has been distended and his feet have been swollen and purplish for quite a while. One day prior to being admitted the patient had several episodes of bright red emesis and black tarry stools. Patient drinks daily but was functioning independently prior to being admitted on 09/28/16. New onset encephalopathy likely secondary to elevated ammonia. . (Gisel Boss) Review of Systems ROS Limitations: Clinical Condition (patient is critically ill currently intubated and sedated on mechanical ventilator.), Intubated, Altered Mental Status (encephalopathic) (Gisel Boss) Past Family Social History Coded Allergies: No Known Allergies (Unverified , 09/28/16) Past Medical History Alcoholic liver cirrhosis Upper GI bleed EtOH abuse Ascites . Past Surgical History Surgical history unknown at this time. . Reported Medications Omeprazole 20 Mg Tab 20 Mg PO DAILY . Current Medications Medications (Trade) Dose Ordered Sig/Tehresa Route Start Time Stop Time Status Last Admin Pantoprazole Sodium 80 mg/ Sodium Chloride 100 ml @ 10 mls/hr Q10H IV 09/28/16 20:15 09/29/16 06:29 Propofol 100 ml @ 0 mls/hr TITRATE IV 09/28/16 20:45 09/29/16 04:38 (NS 1000 ml Inj) 1,000 ml @ 125 mls/hr Q8H IV 09/28/16 22:00 09/29/16 06:29 (NS Flush) 2 ml UNSCH PRN IV FLUSH 09/28/16 21:45 (NS Flush) 2 ml BID IV FLUSH 09/29/16 09:00 (Tylenol) 650 mg Q6H PRN PO 09/28/16 21:45 (Morphine Inj) 2 mg Q2H PRN IV 09/28/16 21:45 (Ativan Inj) 1 mg Q1H PRN IV 09/28/16 21:45 (Tears Naturale Opth Soln) 1 drop TID EACH EYE 09/29/16 09:00 09/29/16 08:48 (Zofran Inj) 4 mg Q6H PRN IV 09/28/16 21:45 (Reglan Inj) 10 mg Q6H PRN IV 09/28/16 21:45 (Colace Liq) 100 mg Q12H G-TUBE 09/28/16 22:00 09/29/16 08:49 Miscellaneous Information 1 Q361D XX 09/28/16 21:45 (Chlorhexidine 2% Cloth) 3 pack Taper DAILY@04 TOP 09/29/16 04:00 09/25/17 03:59 09/29/16 04:47 Chlorhexidine Gluconate 3 pack 3 pack UNSCH PRN TOP 09/28/16 21:45 Fentanyl Citrate 250 ml @ 0 mls/hr TITRATE IV 09/28/16 21:45 Midazolam HCl 100 ml @ 0 mls/hr TITRATE IV 09/28/16 21:45 (Rocephin Inj/NS Inj) 100 ml @ 200 mls/hr Q24H IV 09/28/16 22:00 10/04/16 22:29 09/28/16 23:23 Lactulose 30 ml 30 ml QID PO 09/29/16 09:00 09/29/16 08:49 (SandoSTATIN INJ/ NS 500 ml Inj) 500.0 ml @ 25 mls/hr Q20H IV 09/29/16 01:00 09/29/16 02:59 (Albumin 5% Inj) 25 gm Q6H IV 09/29/16 05:00 09/29/16 23:01 09/29/16 04:43 . Family History Patient's familial history is largely unknown. Patient's estranged reported his father had dementia but was unable to provide further information. . Substance Use Tobacco: [id number] smoking history Alcohol: History of EtOH abusepatient drinks "a lot" of vodka daily. Prescription med abuse: Illicits: Marijuana use. . Psychosocial History Per patient's estranged , the patient was born in [place]. He was raised by his grandmother, believing that she was his mother. Patient has lived in [place] and [place]. He has been with his significant other, Cris, for approximately 11 years and help serve to manage a bar. He remains to his , Alice Thacker, who reported they have been apart for many years but never legally got . Together they have an adult daughter, Daphne. Daphne and her further are estranged. . Spiritual/Cultural Factors Nonreligious. . (Gisel Boss) Health Care Surrogate(s): Not applicable . Documented care wishes: No documented care wishes were completed . Today's verbally stated goals: Patient is incapacitated and unable to participate in making decisions related to medical treatment goals. It is unclear at this time if the patient will regain this capacity. . Family/friends goals: Goals remain aggressive at this time. . Ethical and Legal Issues The patient has been with his significant other (Cris) for approximately 11 years. However, he never legally his (Alice Thacker). He also has an adult daughter (Daphne). Per [place] statutes, in the absence of written advanced directives healthcare proxy falls to the patient's legal , Alice Thacker. . (Vesely,Gisel H. TALENT ANALYST) Physical Exam Vital Signs Date Time Temp Pulse Resp B/P Pulse Ox O2 Delivery O2 Flow Rate FiO2 09/29/16 08:00 75 09/29/16 08:00 97.8 74 16 108/59 98 09/29/16 08:00 45 09/29/16 07:28 99 45 09/29/16 06:00 83 09/29/16 04:01 99 45 09/29/16 04:00 45 09/29/16 04:00 80 09/29/16 04:00 97.8 79 16 117/64 99 09/29/16 02:00 87 09/29/16 01:50 100 100 09/29/16 01:00 84 09/29/16 00:29 98.0 97 18 116/57 96 09/29/16 00:15 100 50 09/29/16 00:05 100 100 09/28/16 22:35 100 100 09/28/16 22:20 137 170/87 100 Ventilator 09/28/16 22:12 136 187/95 100 09/28/16 22:10 137 163/86 100 Ventilator 09/28/16 21:50 100 45 09/28/16 21:48 100 100 09/28/16 21:45 111 109/60 100 Ventilator 09/28/16 21:44 112 110/61 100 Ventilator 09/28/16 21:14 132 139/101 100 Ventilator 09/28/16 21:03 132 217/105 100 Ventilator 09/28/16 20:55 98.7 139 244/130 100 Ventilator 09/28/16 20:45 98 100 09/28/16 20:17 109 18 167/90 99 Room Air 09/28/16 19:54 117 24 167/90 95 . 09/28/16 09/29/16 19:00 07:00 Intake Total 1030 ml Output Total 650 ml Balance 380 ml Intake IV Total 1030 ml Output Urine Total 500 ml Gastric Drainage Total 150 ml # Bowel Movements 1 . Exam CONSTITUTIONAL/GENERAL: This is an adequately nourished, male patient patient, in no apparent distress. TUBES/LINES/DRAINS:PIV x 5, ETT, OGT, Chi, SCDs SKIN: Patient is jaundice Ecchymoses on upper extremities. No wounds seen anteriorly. Skin temperature appropriate. Not diaphoretic. HEAD: Atraumatic. Normocephalic. EYES: Pupils equal and round and reactive. Extraocular motions intact. + scleral icterus. No injection or drainage. Fundi not examined. ENT: Hearing grossly normal. Nose without bleeding or purulent drainage. Throat without visible erythema, exudates, masses, or lesions. NECK: Trachea midline. Supple, nontender. No palpable thyroid enlargement or nodularity. CARDIOVASCULAR: Regular rate and rhythm. + Murmur. RESPIRATORY/CHEST: Patient intubated on mechanical ventilator. Wheezing with scattered rhonchi. GASTROINTESTINAL: Abdomen is distended. Bowel sounds are hypoactive. GENITOURINARY: Without palpable bladder distension. Chi catheter in place. MUSCULOSKELETAL: Extremities without clubbing or mottling. Toe to ankle edema at +2 bilaterally. LYMPHATICS: No palpable cervical or supraclavicular adenopathy. NEUROLOGICAL: Patient is sedated on fentanyl. PSYCHIATRIC: Unable to assess given patient's clinical condition. . (Gisel Boss) Diagnostic Tests Laboratory Laboratory Tests Test 09/28/16 09/28/16 09/28/16 09/28/16 20:20 20:50 21:38 22:42 White Blood Count 16.4 TH/MM3 (4.0-11.0) Red Blood Count 3.49 MIL/MM3 (4.50-5.90) Hemoglobin 11.4 GM/DL (13.0-17.0) Hematocrit 33.1 % (39.0-51.0) Mean Corpuscular Volume 94.7 FL (80.0-100.0) Mean Corpuscular Hemoglobin 32.6 PG (27.0-34.0) Mean Corpuscular Hemoglobin 34.4 % Concent (32.0-36.0) Red Cell Distribution Width 13.9 % (11.6-17.2) Platelet Count 124 TH/MM3 (150-450) Mean Platelet Volume 10.5 FL (7.0-11.0) Neutrophils (%) (Auto) 84.9 % (16.0-70.0) Lymphocytes (%) (Auto) 7.3 % (9.0-44.0) Monocytes (%) (Auto) 7.3 % (0.0-8.0) Eosinophils (%) (Auto) 0.1 % (0.0-4.0) Basophils (%) (Auto) 0.4 % (0.0-2.0) Neutrophils # (Auto) 13.9 TH/MM3 (1.8-7.7) Lymphocytes # (Auto) 1.2 TH/MM3 (1.0-4.8) Monocytes # (Auto) 1.2 TH/MM3 (0-0.9) Eosinophils # (Auto) 0.0 TH/MM3 (0-0.4) Basophils # (Auto) 0.1 TH/MM3 (0-0.2) CBC Comment DIFF FINAL Differential Comment Prothrombin Time 16.3 SEC (9.8-11.6) Prothromb Time International 1.5 RATIO Ratio Activated Partial 33.0 SEC Thromboplast Time (24.3-30.1) Lactic Acid Level 4.6 mmol/L (0.4-2.0) Ammonia 100 MCMOL/L (11-32) Blood Type B POSITIVE Antibody Screen NEGATIVE Urine Color YELLOW (YELLW/STRAW) Urine Turbidity CLEAR (CLEAR) Urine pH 7.0 (5.0-8.5) Urine Specific Newman 1.031 (1.002-1.035) Urine Protein TRACE mg/dL (NEG-TRACE) Urine Glucose (UA) NEG mg/dL (NEG) Urine Ketones 10 mg/dL (NEG) Urine Occult Blood NEG (NEG) Urine Nitrite NEG (NEG) Urine Bilirubin NEG (NEG) Urine Urobilinogen 4.0 MG/DL (LESS THAN 2.0) Urine Leukocyte Esterase NEG (NEG) Urine RBC 1 /hpf (0-3) Urine WBC 2 /hpf (0-5) Urine Renal Epithelial Cells <1 /hpf (NONE) Urine Mucus FEW /lpf (OCC) Microscopic Urinalysis Comment CULT NOT INDICATED Blood Gas Puncture Site RT RADIAL Blood Gas Patient Temperature 98.6 Blood Gas HCO3 25 mmol/L (22-26) Blood Gas Base Excess 0.5 mmol/L (-2-2) Blood Gas Oxygen Saturation 98 % (90-100) Arterial Blood pH 7.38 (7.380-7.420) Arterial Blood Partial 43 mmHg (38-42) Pressure CO2 Arterial Blood Partial 281 mmHG Pressure O2 (61-120) Arterial Blood Oxygen Content 15.2 Vol % (12.0-20.0) Arterial Blood 1.5 % (0-4) Carboxyhemoglobin Arterial Blood Methemoglobin 0.5 % (0-2) Blood Gas Hemoglobin 10.5 G/DL (12.0-16.0) Oxygen Delivery Device VENTILATOR Blood Gas Ventilator Setting AC/16/550/PEEP 5 Blood Gas Inspired Oxygen 100 % Troponin I 0.56 NG/ML (0.02-0.05) Sodium Level 140 MEQ/L (136-145) Potassium Level 4.4 MEQ/L (3.5-5.1) Chloride Level 102 MEQ/L (98-107) Carbon Dioxide Level 25.7 MEQ/L (21.0-32.0) Anion Gap 12 MEQ/L (5-15) Blood Urea Nitrogen 20 MG/DL (7-18) Creatinine 0.72 MG/DL (0.60-1.30) Estimat Glomerular Filtration 116 ML/MIN Rate (>89) Random Glucose 135 MG/DL (74-106) Calcium Level 8.2 MG/DL (8.5-10.1) Total Bilirubin 3.7 MG/DL (0.2-1.0) Aspartate Amino Transf 75 U/L (15-37) (AST/SGOT) Alanine Aminotransferase 16 U/L (12-78) (ALT/SGPT) Alkaline Phosphatase 159 U/L (45-117) Total Protein 6.8 GM/DL (6.4-8.2) Albumin 2.4 GM/DL (3.4-5.0) Lipase 396 U/L (73-393) Ethyl Alcohol Level LESS THAN 3 MG/DL (0-5) Test 09/28/16 09/29/16 09/29/16 09/29/16 23:15 00:50 05:20 06:24 Lactic Acid Level 5.1 mmol/L 2.7 mmol/L (0.4-2.0) (0.4-2.0) Nasal Screen MRSA (PCR) NEGATIVE (NEGATIVE) White Blood Count 15.8 TH/MM3 (4.0-11.0) Red Blood Count 2.99 MIL/MM3 (4.50-5.90) Hemoglobin 9.7 GM/DL (13.0-17.0) Hematocrit 29.1 % (39.0-51.0) Mean Corpuscular Volume 97.1 FL (80.0-100.0) Mean Corpuscular Hemoglobin 32.3 PG (27.0-34.0) Mean Corpuscular Hemoglobin 33.3 % Concent (32.0-36.0) Red Cell Distribution Width 14.1 % (11.6-17.2) Platelet Count 80 TH/MM3 (150-450) Mean Platelet Volume 10.4 FL (7.0-11.0) Neutrophils (%) (Auto) 80.6 % (16.0-70.0) Lymphocytes (%) (Auto) 10.7 % (9.0-44.0) Monocytes (%) (Auto) 8.2 % (0.0-8.0) Eosinophils (%) (Auto) 0.2 % (0.0-4.0) Basophils (%) (Auto) 0.3 % (0.0-2.0) Neutrophils # (Auto) 12.7 TH/MM3 (1.8-7.7) Lymphocytes # (Auto) 1.7 TH/MM3 (1.0-4.8) Monocytes # (Auto) 1.3 TH/MM3 (0-0.9) Eosinophils # (Auto) 0.0 TH/MM3 (0-0.4) Basophils # (Auto) 0.1 TH/MM3 (0-0.2) CBC Comment AUTO DIFF Differential Comment AUTO DIFF CONFIRMED Platelet Estimate LOW (NORMAL) Platelet Morphology Comment NORMAL (NORMAL) Ovalocytes 1+ (NORMAL) Sodium Level 141 MEQ/L (136-145) Potassium Level 4.4 MEQ/L (3.5-5.1) Chloride Level 104 MEQ/L (98-107) Carbon Dioxide Level 28.4 MEQ/L (21.0-32.0) Anion Gap 9 MEQ/L (5-15) Blood Urea Nitrogen 22 MG/DL (7-18) Creatinine 0.63 MG/DL (0.60-1.30) Estimat Glomerular Filtration 135 ML/MIN Rate (>89) Random Glucose 134 MG/DL (74-106) Calcium Level 8.1 MG/DL (8.5-10.1) Phosphorus Level 3.3 MG/DL (2.5-4.9) Magnesium Level 1.6 MG/DL (1.5-2.5) Total Bilirubin 2.7 MG/DL (0.2-1.0) Aspartate Amino Transf 79 U/L (15-37) (AST/SGOT) Alanine Aminotransferase 15 U/L (12-78) (ALT/SGPT) Alkaline Phosphatase 130 U/L (45-117) Ammonia 114 MCMOL/L (11-32) Total Creatine Kinase 475 U/L (39-308) Creatine Kinase MB 15.8 NG/ML (0.5-3.6) Creatine Kinase MB % 3.3 % (0.0-4.0) Total Protein 6.3 GM/DL (6.4-8.2) Albumin 2.4 GM/DL (3.4-5.0) Blood Gas Puncture Site LT RADIAL Blood Gas Patient Temperature 98.6 Blood Gas HCO3 28 mmol/L (22-26) Blood Gas Base Excess 2.8 mmol/L (-2-2) Blood Gas Oxygen Saturation 94 % (90-100) Arterial Blood pH 7.38 (7.380-7.420) Arterial Blood Partial 48 mmHg (38-42) Pressure CO2 Arterial Blood Partial 93 mmHg Pressure O2 (61-120) Arterial Blood Oxygen Content 12.6 Vol % (12.0-20.0) Arterial Blood 1.9 % (0-4) Carboxyhemoglobin Arterial Blood Methemoglobin 0.8 % (0-2) Blood Gas Hemoglobin 9.4 G/DL (12.0-16.0) Oxygen Delivery Device VENTILATOR Blood Gas Ventilator Setting AC/RR16/VT550/PEEP5 Blood Gas Inspired Oxygen 45 % Test 09/29/16 08:06 Troponin I 1.34 NG/ML (0.02-0.05) . (Gisel Boss) Result Diagram: 09/29/16 0520 09/29/16 0520 Microbiology Microbiology Date/Time Procedure Status Source Growth 09/28/16 22:30 Aerobic Blood Culture Received Blood Peripheral Pending 09/28/16 22:30 Anaerobic Blood Culture Received Blood Peripheral Pending 09/28/16 22:41 Aerobic Blood Culture Received Blood Peripheral Pending 09/28/16 22:41 Anaerobic Blood Culture Received Blood Peripheral Pending . Imaging Last [address] 09/28/16 0000 Signed Impressions: Service Date/Time: Thursday, September 29, 2016 01:41 - CONCLUSION: No acute intracranial findings. Eric Villalobos MD Chest X-Ray 09/28/16 0000 Signed Impressions: Service Date/Time: Wednesday, September 28, 2016 21:14 - CONCLUSION: 1. ET tube tip at heidi. Suggest pullback by 3 cm. 2. No evidence of pneumothorax. Navin Feng MD . Procedures 09/28/16: Intubation 09/28/16: OGT placement . (Gisel Boss) Patient/Family Conference Present at Family Conference: Spoke to patient's significant other (Cris) and 2 of the patient's close friends at patient's bedside and privately. Spoke to patient's legal , Alice Thacker, (They have been for many years and have not seen each other for approximately 10+ years). . Family Conference Location: Bedside, Hallway, Telephone Issues Discussed: * Palliative care role, purpose, approach * Additional medical, psychosocial, and spiritual history * Patients general health, functional status, and cognitive changes in the months leading up to the current hospitalization * Patient/family understanding of the current medical problems * Patient/family understanding of prognosis * Patients goals of care as best understood from advance directives and/or conversations and/or values * Current medical treatment options and benefits/burdens of those options * Likely scenarios comparing ongoing aggressive care with a transition to comfort measures only * Questions answered to the best of my ability * Palliative care contact information provided . (Gisel Boss) Assessment and Plan Disease Oriented Problem List: (1) Hepatic encephalopathy Comment: Ammonia level of 100 on admission. Patient receiving lactulose 4 times daily. (2) GI bleed (3) Hepatitis C (4) Liver cirrhosis, alcoholic (5) Acute respiratory failure (6) Coagulopathy Comment: Coagulopathy secondary to end-stage liver cirrhosis . (7) Troponin level elevated Comment: Troponin on admission was 0.56. Will monitor serial troponin levels (8) End stage liver disease Comment: MELD 15 . Symptom Scale: (1) Pain (2) Encephalopathy Pertinent Non-Medical Issues Psychosocial: Spiritual: Legal: Ethical issues impacting care: Important Contacts Cris Prado, significant other: [phone] Alice Gomez, estranged /HCP: [phone] . Code Status: Full Code Plan * FULL CODE * Decision-making: The patient has been with his significant other (Cris) for approximately 11 years. However, he never legally his (Alice Thacker). He also has an adult daughter (Daphne). Per [place] statutes, in the absence of written advanced directives healthcare proxy falls to the patient 's legal , Alice Thacker living in [place] = NOT SO (Cris) AT BEDSIDE. Palliative care spoke to patient's (Alice Thacker) who is willing to act and the role of healthcare proxy. * Goals: Plan to move forward with CT abdomen/pelvis today and possible EGD. Goals remain aggressive at this time. * Patient's legal , Alice Thacker, has given permission to speak with patient's (Cris) significant other/answer questions. Both Alice and Cris were given patient's pin number. (Gisel Boss) Thank you for the opportunity to participate in the care of Mr. Thacker. (Gisel Boss) Collaborating MD Comments Chart reviewed. Cased discussed with palliative care TALENT ANALYST. Above TALENT ANALYST note reviewed and I concur. . (Vishal Rivas MD) Gisel Boss Sep 29, 2016 11:18 Vishal Rivas MD December 13, 2016 13:16
[2016-09-29 13:42] LABS: HEMATOCRIT 25.8 % (39.0-51.0)
[2016-09-29 13:43] LABS: REVIEW FLAG FINAL
[2016-09-29] MEDS ORDERED: IOHEXOL 350 MG/ML 10 ML VIAL (for RAD DIAG) IV ONE (16:39)
[2016-09-29] MEDS: OCTREOTIDE INJ 500 MCG in SODIUM CHLORID 0.9% 500 ML INJ 499.5 ML IV SCH (17:00)
--- NOTE | 2016-09-29 17:07 | RADRPT ---
EXAM DATE/TIME: 09/29/2016 16:20 [facility] COMPARISON: No previous studies available for comparison. INDICATIONS : Ascites. IV CONTRAST: 99 cc Omnipaque 350 (iohexol) IV ORAL CONTRAST: Prescribed oral contrast ingested. RADIATION DOSE: 16.49 CTDIvol (mGy) MEDICAL HISTORY : Cirrhosis. Gastroesophageal reflux disease. Hypertension.GI bleed. SURGICAL HISTORY : None. ENCOUNTER: Initial ACUITY: 1 day PAIN SCALE: Non-responsive LOCATION: Abdomen. TECHNIQUE: Volumetric scanning of the abdomen and pelvis was performed. Using automated exposure control and adjustment of the mA and/or kV according to patient size, radiation dose was kept as low as reasonably achievable to obtain optimal diagnostic quality images. FINDINGS: The liver appears abnormal with a nodular surface. These changes are consistent with c irrhosis. There is a large amount of ascites seen. The spleen is enlarged measuring 17 cm in length. No focal splenic lesions are seen. There is increased density within the gallbladder which may rep resent contrast if the patient has had recent intravenous contrast administration versus some milk of calcium. The pancreas, adrenal glands and kidneys appear normal. There are some scattered atheroscl erotic calcifications seen in the arterial system but no aneurysm is seen. There is an NG tube in pl eric with its tip in the distal stomach significantly dilated bowel is not seen. There is a Chi cat heter in the bladder. There are mild bilateral pleural effusions with accompanying areas of atelectasis or consolidation at the lower lobes. There is edema seen throughout the subcutaneous fat consistent with anasarca. The re is some degenerative change in the lower lumbar spine. CONCLUSION: 1. Cirrhotic liver with a large amount of ascites. There also appears to be anasarca with edema seen throughout the subcutaneous tissues. 2. Mild bilateral pleural effusions with accompanying areas of atelectasis or consolidation at the lo wer lobes bilaterally. 3. Splenomegaly, this likely reflects portal hypertension and liver disease. Mike Hallman MD on September 29, 2016 at 16:51 Board Certified Radiologist. This report was verified electronically.
--- NOTE | 2016-09-29 17:14 | EC ---
Study Study Date:09/29/2016 STUDY CONCLUSIONS SUMMARY - Left ventricle: The cavity size was normal. Wall thickness was increased in a pattern of mild LVH. Systolic function was normal. The estimated ejection fraction was 60%. Wall motion was normal; there were no regional wall motion abnormalities. - Aortic valve: Trileaflet; moderately thickened, moderately calcified leaflets. Transvalvular velocity was increased. There was moderate stenosis. Mean gradient: 32mm Hg (S). Peak gradient: 62mm Hg (S). Valve area: 1.21cm^2(VTI). Valve area: 1.02cm^2 (Vmax). - Tricuspid valve: Mild regurgitation. If LV function is below 40, please consider prescribing an ACEI or ARB or document rationale for non-use. PROCEDURE DATA STUDY STATUS: Elective. Procedure: Transthoracic echocardiography. Image quality was good. Scanning was performed from the parasternal, apical, and subcostal acoustic windows. Study completion: The patient tolerated the procedure well. Transthoracic echocardiography. M-mode, complete 2D, complete spectral Doppler, and color Doppler. Height: Height: 70in. Weight: Weight: 177.6lb. Body mass index: BMI: 25.5kg/m^2. Body surface area: BSA: 1.99m^2. Patient status: Inpatient. CARDIAC ANATOMY LEFT VENTRICLE: The cavity size was normal. Wall thickness was increased in a pattern of mild LVH. Systolic function was normal. The estimated ejection fraction was 60%. Wall motion was normal; there were no regional wall motion abnormalities. AORTIC VALVE: Trileaflet; moderately thickened, moderately calcified leaflets. Doppler: Transvalvular velocity was increased. There was moderate stenosis. No regurgitation. Valve area: 1.21cm^2(VTI). Indexed valve area: 0.61cm^2/m^2 (VTI). Valve area: 1.02cm^2 (Vmax). Indexed valve area: 0.51cm^2/m^2 (Vmax). Mean gradient: 32mm Hg (S). Peak gradient: 62mm Hg (S). AORTA: Aortic root: The aortic root was normal in size. MITRAL VALVE: Structurally normal valve. Doppler: Transvalvular velocity was within the normal range. There was no evidence for stenosis. No regurgitation. Valve area by pressure half-time: 2.56cm^2. Indexed valve area by pressure half-time: 1.29cm^2/m^2. Peak gradient: 3mm Hg (D). LEFT ATRIUM: The atrium was normal in size. RIGHT VENTRICLE: The cavity size was normal. Wall thickness was normal. PULMONIC VALVE: Doppler: Transvalvular velocity was within the normal range. There was no evidence for stenosis. No regurgitation. Peak gradient: 25mm Hg (S). TRICUSPID VALVE: Structurally normal valve. Doppler: Transvalvular velocity was within the normal range. Mild regurgitation. Peak gradient: 29mm Hg (D). PULMONARY ARTERY: The main pulmonary artery was normal-sized. Systolic pressure was within the normal range. RIGHT ATRIUM: The atrium was normal in size. PERICARDIUM: There was no pericardial effusion. SYSTEMIC VEINS: Inferior vena cava: The vessel was normal in size. Patient weight: 177.6lb _Ejection fraction:_ 65-75% _Fractional shortening:_ 32% up to 5Kg 5-11.5Kg 11.6-22.9Kg 23-45Kg 45-57Kg Aortic Root 7-13 <17 13-22 17-27 17-27 LA diam 6-13 <23 24-38 33-47 37-40 RVID 10-17 7-15 7-15 7-18 8-17 LVIDd 12-22 <32 24-38 33-47 37-40 LVPW 2-4 3-6 5-7 6-8 7-8 IVS 2-4 3-6 5-7 6-8 7-8 BASIC MEASUREMENTS ADULT NORMAL Left ventricle LV internal dimension, ED, chordal 44.5 mm 43-52 level, PLAX LV internal dimension, ES, chordal 29.5 mm 23-38 level, PLAX Fractional shortening, chordal level, 34 % >29 PLAX LV posterior wall thickness, ED 17.2 mm IVS/LVPW ratio, ED 1.01 <1.3 Ventricular septum Septal thickness, ED 17.4 mm Aortic valve Leaflet separation *11 mm 15-26 Left atrium Anterior-posterior dimension 40 mm Anterior-posterior dimension index 2.01 cm/m^2 <2.2 Right ventricle RV internal dimension, ED, PLAX 28.1 mm 19-38 BASIC MEASUREMENTS ADULT NORMAL Aortic valve Leaflet separation *11 mm 15-26 Aorta Root diameter, ED 35 mm 20-37 DOPPLER MEASUREMENTS ADULT NORMAL Aortic valve Peak velocity, S 395 cm/s Mean velocity, S 255 cm/s VTI, S 81.5 cm Mean gradient, S 32 mm Hg Peak gradient, S 62 mm Hg Valve area, VTI 1.21 cm^2 Valve area index, VTI 0.61 cm^2/m^2 Valve area, Vmax 1.02 cm^2 Valve area index, Vmax 0.51 cm^2/m^2 Mitral valve Peak E-wave velocity 84.9 cm/s Peak A-wave velocity 106 cm/s Pressure half-time 86 ms Peak gradient, D 3 mm Hg Peak E/A ratio 0.8 Valve area, pressure half-time 2.56 cm^2 Valve area index, pressure half-time 1.29 cm^2/m^2 Tricuspid valve Peak gradient, D 29 mm Hg Maximal inflow velocity 271 cm/s Systemic veins Estimated CVP 10 mm Hg Pulmonic valve Peak velocity, S 250 cm/s Peak gradient, S 25 mm Hg LEGEND: Mean values are shown as u=mean value. Asterisk (*) woody values outside specified normal range. Prepared and signed by Ora Davis [id number]
[2016-09-29 18:00] LABS: HEMATOCRIT 24.4 % (39.0-51.0)
[2016-09-29 18:03] LABS: REVIEW FLAG FINAL
--- NOTE | 2016-09-29 20:05 | EKG ---
Date Performed: 09/28/2016 Time Performed: 18:55:24 PTAGE: 50 years EKG: SINUS TACHYCARDIA SEPTAL MYOCARDIAL INFARCTION NONSPECIFIC ST-T CHANGES PREVIOUS TRACING : 12/30/2010 16.45 Compared to the previous tracing rate faster DOCTOR: Ora Davis Interpretating Date/Time 09/29/2016 20:04:37
[2016-09-29] MEDS: cefTRIAXone INJ 1,000 MG in SODIUM CHLORIDE 0.9% INJ 100 ML IV SCH (22:11)
[2016-09-29] MEDS: RESP: ALBUTEROL 2.5 MG/IPRATROPIUM 0.5 MG NEB (PRN) INH (22:44)
[2016-09-29 23:51] LABS: HEMATOCRIT 27.9 % (39.0-51.0); MEAN CELL VOLUME 98.5 FL (80.0-100.0); MEAN CORPUSCULAR HEMOGLOBIN 32.2 PG (27.0-34.0); MEAN CORPUSCULAR HGB CONC 32.7 % (32.0-36.0); PLATELET COUNT 99 TH/MM3 (150-450); RED BLOOD COUNT 2.84 MIL/MM3 (4.50-5.90); RED CELL DISTRIBUTION WIDTH 14.4 % (11.6-17.2); WHITE BLOOD COUNT 16.4 TH/MM3 (4.0-11.0)
[2016-09-30] VITALS (20 sets, daily range): BP systolic 86–137; BP diastolic 46–72; PULSE 70–117; RESP 12–20; TEMP 97.7–98.6; O2SAT 88–100
[2016-09-30 00:04] LABS: HEMO FLAGS AUTO DIFF
[2016-09-30] MEDS: OCTREOTIDE INJ 500 MCG in SODIUM CHLORID 0.9% 500 ML INJ 499.5 ML IV SCH ×3 (00:42→21:12)
[2016-09-30 00:43] LABS: BANDS 1 % (0-6); BASOPHILS 1 % (0-2); POLYS (SEG NEUTROPHILS) 60 % (16-70); SCAN/DIFF FINAL DIFF MANUAL; WBC DIFF SAMPLE 100
[2016-09-30 00:44] LABS: ACANTHOCYTES OCC (NORMAL); PLATELET ESTIMATE SMEAR LOW (NORMAL); PLATELET MORPHOLOGY NORMAL (NORMAL)
[2016-09-30 00:45] LABS: POLYCHROMASIA 3.8 % (0.0-1.9)
[2016-09-30 00:46] LABS: HELMET CELLS OCC (NORMAL); OVALOCYTES 1+ (NORMAL)
--- NOTE | 2016-09-30 00:49 | RADRPT ---
EXAM DATE/TIME: 09/30/2016 00:20 [facility] COMPARISON: CHEST SINGLE AP, September 28, 2016, 21:14. INDICATIONS : Respiratory distress. MEDICAL HISTORY : Hypertension. Cirrhosis. SURGICAL HISTORY : None. ENCOUNTER: Subsequent ACUITY: 2 days PAIN SCORE: Non-responsive. LOCATION: Bilateral chest FINDINGS: Single AP view of the chest. Endotracheal tube and nasogastric tube remain in place. Increased bilate ral hazy pulmonary opacity likely representing pulmonary edema. Persistent cardiac silhouette enlarge ment. No evidence of pleural effusion or pneumothorax. CONCLUSION: Increased bilateral diffuse pulmonary opacity likely representing pulmonary edema. Eric Villalobos MD on September 30, 2016 at 0:47 Board Certified Radiologist. This report was verified electronically.
[2016-09-30] MEDS ORDERED: ROCURONIUM INJ 50 MG/5 ML VIAL IV ONE (01:00)
[2016-09-30 01:16] LABS: BLOOD GAS BASE EXCESS -2.5 mmol/L (-2-2); BLOOD GAS CARBOXYHEMOGLOBIN 1.6 % (0-4); BLOOD GAS HCO3 25 mmol/L (22-26); BLOOD GAS METHEMOGLOBIN 1.1 % (0-2); BLOOD GAS O2 HGB SATURATION 97 % (90-100); BLOOD GAS PCO2 66 mmHg (38-42); BLOOD GAS PO2 193 mmHg (61-120); BLOOD GAS TOTAL HGB 8.5 G/DL (12.0-16.0); CRITICAL VALUE YES; OXYGEN DEVICE VENTILATOR; TEMP CORR TO 98.6
[2016-09-30 01:17] LABS: DRAW SITE LT BRACHIAL; FIO2 100 %; NUMBER OF ARTERIAL PUNCTURES 2; STAT YES; ULNAR PULSE PRESENT; VENT SETTINGS AC16/550/PEEP10
[2016-09-30] MEDS: RESP: ALBUTEROL 2.5 MG/IPRATROPIUM 0.5 MG NEB (PRN) INH (01:20)
[2016-09-30] MEDS: CHLORHEXIDINE GLUCONATE 2 % 1 PACK (2 CLOTHS) TOP SCH (01:22)
[2016-09-30] MEDS: PANTOPRAZOLE INJ 80 MG in SODIUM CHLORIDE 0.9% INJ 100 ML IV SCH ×3 (01:52→21:21)
[2016-09-30] MEDS: ARTIFICIAL TEARS OPTH OINT 3.5 APPLIC/3.5 GM TUBO EACH EYE SCH ×3 (01:55→21:00)
[2016-09-30] MEDS: CISATRACURIUM INJ 100 MG in SODIUM CHLOR 0.9% 250 ML INJ 240 ML IV SCH ×2 (01:56→10:51)
[2016-09-30] MEDS: RIFAXIMIN 200 MG TAB TUBE SCH ×4 (01:56→21:21)
[2016-09-30 03:03] LABS: BLOOD GAS BASE EXCESS -1.2 mmol/L (-2-2); BLOOD GAS CARBOXYHEMOGLOBIN 1.5 % (0-4); BLOOD GAS HCO3 26 mmol/L (22-26); BLOOD GAS O2 HGB SATURATION 88 % (90-100); BLOOD GAS OXYGEN CONTENT 10.8 Vol % (12.0-20.0); BLOOD GAS PCO2 74 mmHg (38-42); BLOOD GAS PO2 75 mmHg (61-120); BLOOD GAS TOTAL HGB 8.6 G/DL (12.0-16.0); TEMP CORR TO 98.6
[2016-09-30 03:04] LABS: CRITICAL VALUE YES; OXYGEN DEVICE VENTILATOR
[2016-09-30 03:05] LABS: DRAW SITE LT BRACHIAL; FIO2 100 %; NUMBER OF ARTERIAL PUNCTURES 1; STAT YES
[2016-09-30] MEDS ORDERED: FUROSEMIDE 20 MG/2 ML VIAL IV PUSH ONE (03:15)
[2016-09-30] MEDS: RESP: ALBUTEROL 2.5 MG/IPRATROPIUM 0.5 MG NEB (SCH) NEB ×5 (03:36→19:41)
[2016-09-30 04:02] LABS: AUTOMATED NEUTROPHIL # 13.8 TH/MM3 (1.8-7.7); BASOPHIL # 0.1 TH/MM3 (0-0.2); BASOPHIL % 0.4 % (0.0-2.0); EOSINOPHIL % 0.2 % (0.0-4.0); HEMATOCRIT 25.3 % (39.0-51.0); LYMPHOCYTE # 0.8 TH/MM3 (1.0-4.8); MEAN CELL VOLUME 99.6 FL (80.0-100.0); MEAN CORPUSCULAR HGB CONC 32.1 % (32.0-36.0); MONO % 7.3 % (0.0-8.0); NEUT % 87.1 % (16.0-70.0); PLATELET COUNT 66 TH/MM3 (150-450); RED BLOOD COUNT 2.54 MIL/MM3 (4.50-5.90); RED CELL DISTRIBUTION WIDTH 14.6 % (11.6-17.2); WHITE BLOOD COUNT 15.8 TH/MM3 (4.0-11.0)
[2016-09-30 04:11] LABS: BLOOD GAS BASE EXCESS -1.1 mmol/L (-2-2); BLOOD GAS CARBOXYHEMOGLOBIN 1.8 % (0-4); BLOOD GAS HCO3 24 mmol/L (22-26); BLOOD GAS O2 HGB SATURATION 89 % (90-100); BLOOD GAS OXYGEN CONTENT 10.3 Vol % (12.0-20.0); BLOOD GAS PCO2 49 mmHg (38-42); BLOOD GAS PO2 70 mmHg (61-120); BLOOD GAS TOTAL HGB 8.2 G/DL (12.0-16.0); TEMP CORR TO 98.6
[2016-09-30 04:12] LABS: HEMO FLAGS AUTO DIFF
[2016-09-30 04:12] LABS: CRITICAL VALUE YES; FIO2 100 %; OXYGEN DEVICE VENTILATOR; VENT SETTINGS AC16/600/PEEP10
[2016-09-30 04:13] LABS: DRAW SITE RT RADIAL; NUMBER OF ARTERIAL PUNCTURES 1; STAT NO; ULNAR PULSE PRESENT
[2016-09-30 04:29] LABS: ALKALINE PHOSPHATASE 100 U/L (45-117); ALT (GPT) 13 U/L (12-78); ANION GAP 8 MEQ/L (5-15); AST (GOT) 80 U/L (15-37); BICARBONATE 28.2 MEQ/L (21.0-32.0); BLOOD UREA NITROGEN 33 MG/DL (7-18); CHLORIDE 105 MEQ/L (98-107); GLOMERULAR FILTRATION RATE 69 ML/MIN (>89); MAGNESIUM 1.8 MG/DL (1.5-2.5); POTASSIUM 4.4 MEQ/L (3.5-5.1); SODIUM (NA) 141 MEQ/L (136-145)
[2016-09-30] MEDS ORDERED: NOREPINEPHRINE INJ 4 MG in SODIUM CHLOR 0.9% 250 ML INJ 246 ML IV SCH (04:30)
[2016-09-30] MEDS ORDERED: TERBUTALINE INJ 1 MG/ML AMP SQ PRN (04:30)
[2016-09-30] MEDS ORDERED: SODIUM CHLOR 0.9% 250 ML INJ 250 ML IV ONE (04:45)
[2016-09-30] MEDS: SODIUM CHLOR 0.9% 1000 ML INJ 1,000 ML IV SCH ×3 (05:17→21:16)
[2016-09-30 06:08] LABS: BANDS 2 % (0-6); NEUTROPHIL # MANUAL DIFF 13.9 TH/MM3 (1.8-7.7); POLYS (SEG NEUTROPHILS) 86 % (16-70); SCAN/DIFF FINAL DIFF MANUAL; WBC DIFF SAMPLE 100
[2016-09-30 06:09] LABS: PLATELET ESTIMATE SMEAR LOW (NORMAL); PLATELET MORPHOLOGY NORMAL (NORMAL)
[2016-09-30 06:13] LABS: POLYCHROMASIA 2.5 % (0.0-1.9)
[2016-09-30 06:14] LABS: HELMET CELLS OCC (NORMAL)
[2016-09-30] MEDS ORDERED: EPOPROSTENOL NEB SOLUTION 50 NG/KG/MIN 100 ML NEB SCH ×2 (07:00)
--- NOTE | 2016-09-30 07:00 | PD.PROCEDR ---
Procedure Note Procedure DATE: 09/30/16 PROCEDURE: Right radial arterial catheter placement INDICATION: Shock and refractory hypoxemia in need of hemodynamic and ABG monitoring. DETAILS OF PROCEDURE The patient was placed in supine position. The skin was cleansed with Chloraprep. Additional barrier precautions included large sterile drape, sterile gloves, sterile gown, face mask, and hat. 1% lidocaine was used for local anesthesia. Under direct ultrasound guidance and on the second attempt, the artery was accessed with needle, wire advanced and then catheter advanced over wire. The wire was removed. Using Seldinger technique 20 gauge arterial catheter was placed. The guide wire was removed. The catheter was connected to a transducer line and flushed with saline. The video monitor displayed normal arterial wave forms. The catheter was secured with 2-0 silk. A sterile dressing with antibiotic disc was applied. ESTIMATED BLOOD LOSS: minimal COMPLICATIONS: None Estela Box MD Sep 30, 2016 07:00
--- NOTE | 2016-09-30 07:00 | PD.PROCEDR ---
Procedure Note Procedure DATE: 09/30/16 CENTRAL LINE PLACEMENT: Right internal jugular vein. Ultrasound-guided INDICATION: Central venous access CONSENT PRocedure was done emergently as patient is in extremis, hypotension, in need of central line access. For therapist with bagging at bedside during procedure due to refractory hypoxemia. DESCRIPTION OF THE PROCEDURE The patient was placed in supine position, mild Trendelenburg. The skin was cleansed with Chloraprep 3. Additional barrier precautions included large sterile drape, sterile gloves, sterile gown, face mask, and hat. 1 % lidocaine was used for local anesthesia. Under direct ultrasound guidance and on single attempt, the vein was accessed with an introducer needle. The guide wire was advanced and the tract was dilated. Using Seldinger technique a 7 Frisian 20 cm antimicrobial coated triple-lumen catheter was advanced to a depth of 18 centimeters. The guide wire was removed. All ports had good return of dark venous blood and flushed easily with saline. The central line was secured with 2.0 silk. A sterile dressing with antibiotic disc was applied. ESTIMATED BLOOD LOSS: Minimal COMPLICATIONS: No apparent complications. STAT chest x-ray is pending Estela Box MD Sep 30, 2016 07:00
[2016-09-30] MEDS: LACTULOSE SYRUP 20 GM/30 ML CUP PO SCH ×3 (07:51→21:12)
[2016-09-30 08:33] LABS: APTT (PATIENT) 44.1 SEC (24.3-30.1); INTERNATIONAL NORMALIZED RATIO 1.5 RATIO; PROTHROMBIN TIME - PATIENT 17.4 SEC (9.8-11.6)
[2016-09-30] MEDS ORDERED: NOREPINEPHRINE INJ 8 MG in SODIUM CHLORID 0.9% 500 ML INJ 492 ML IV SCH (09:00)
[2016-09-30] MEDS ORDERED: NOREPINEPHRINE IV SCH (09:00)
[2016-09-30] MEDS ORDERED: SODIUM CHLORID 0.9% IV SCH (09:00)
--- NOTE | 2016-09-30 09:20 | RADRPT ---
EXAM DATE/TIME: 09/30/2016 08:47 [facility] COMPARISON: CHEST SINGLE AP, September 30, 2016, 0:20. INDICATIONS: Central line placement. MEDICAL HISTORY: Gastrointestinal bleed. SURGICAL HISTORY: None. ENCOUNTER: Subsequent ACUITY: 3 days PAIN SCORE: Non-responsive. LOCATION: Bilateral chest FINDINGS: Patient is intubated with the tip of the ET tube 3 cm from the heidi. An NG tube is in place with t ip directed into the stomach. There is a right internal jugular central line in place with tip overl [place] the SVC. The cardiac silhouette is enlarged. There is diffuse consolidation throughout the floridalma gs. There is silhouetting at the [place]-diaphragms. CONCLUSION: 1. Diffuse consolidation likely representing diffuse process such as edema. This has clearly worsen ed since the prior exam. 2. New right internal jugular central line in good position. A pneumothorax is not seen. Mike Hallman MD on September 30, 2016 at 9:14 Board Certified Radiologist. This report was verified electronically.
--- NOTE | 2016-09-30 09:49 | HHI.CCPN ---
Subjective Remarks/Hospital Course 50-year-old gentleman with past medical history of hepatitis C, chronic alcohol abuse, cirrhosis, previous upper GI bleed, presents today with altered mental status. He has been having distended abdomen for quite sometime time. He was found completely altered almost unresponsive by his significant other called EVAC. Per her statement patient was informed that he was going to 5 years ago if he continues to drink alcohol. He has been drinking daily until today. He was very altered and extremely agitated in the emergency department and was intubated for airway protection by ER attending. Subjective: 09/29:Afebrile. The patient maintains intubated and sedated. Noted approximately 150 cc's of coffee-ground emesis since admission to the ICU. Pending recommendations from GI which was consulted. The patient continues on octreotide and Protonix infusions, and lactulose for hyperammonemia. This a.m. abdomen appears protuberant, normoactive bowel sounds ,CT abdomen and pelvis are pending. 09/30: Overnight the patient was having increasing difficulty with oxygenation with peak pressures increasing. Somewhat felt to be due to auto PEEP. Multiple adjustments currently with mechanical ventilation the patient currently now is on Flolan, FiO2 of 100%. Possibly hepatopulmonary syndrome, bubble study being obtained. Possibly abdominal compartment syndrome from ascites, plan for correction of coagulation of INR 1.5 with FFP, and thrombocytopenia with platelet count of 66. We'll perform paracentesis at bedside secondary to the instability of transport to interventional radiology. The patient continues on sedation and paralytics, plan for endoscopy this a.m. patient continues on Protonix and octreotide infusion. The patient is hypotensive during the night, norepinephrine at 12mcgs. Objective Vital Signs Date Time Temp Pulse Resp B/P Pulse Ox O2 Delivery O2 Flow Rate FiO2 09/30/16 08:30 96 100 09/30/16 06:00 96 09/30/16 04:00 98.6 20 86/50 09/28/16 22:20 Ventilator Intake and Output 09/29/16 09/29/16 09/30/16 08:00 16:00 00:00 Intake Total 1030 ml 1254 ml 2002 ml Output Total 650 ml 150 ml 700 ml Balance 380 ml 1104 ml 1302 ml Result Diagram: 09/30/16 0340 09/30/16 0340 Other Results Laboratory Tests Test 09/30/16 09/30/16 09/30/16 01:05 02:50 04:03 Blood Gas Puncture Site LT BRACHIAL LT BRACHIAL RT RADIAL Blood Gas Patient Temperature 98.6 98.6 98.6 Blood Gas HCO3 25 mmol/L 26 mmol/L 24 mmol/L (22-26) (22-26) (22-26) Blood Gas Base Excess -2.5 mmol/L -1.2 mmol/L -1.1 mmol/L (-2-2) (-2-2) (-2-2) Blood Gas Oxygen Saturation 97 % (90-100) 88 % (90-100) 89 % (90-100) Arterial Blood pH 7.20 7.18 7.31 (7.380-7.420) (7.380-7.420) (7.380-7.420) Arterial Blood Partial 66 mmHg (38-42) 74 mmHg (38-42) 49 mmHg (38-42) Pressure CO2 Arterial Blood Partial 193 mmHg 75 mmHg 70 mmHg Pressure O2 (61-120) (61-120) (61-120) Arterial Blood Oxygen Content 12.0 Vol % 10.8 Vol % 10.3 Vol % (12.0-20.0) (12.0-20.0) (12.0-20.0) Arterial Blood 1.6 % (0-4) 1.5 % (0-4) 1.8 % (0-4) Carboxyhemoglobin Arterial Blood Methemoglobin 1.1 % (0-2) 1.0 % (0-2) 1.0 % (0-2) Blood Gas Hemoglobin 8.5 G/DL 8.6 G/DL 8.2 G/DL (12.0-16.0) (12.0-16.0) (12.0-16.0) Oxygen Delivery Device VENTILATOR VENTILATOR VENTILATOR Blood Gas Ventilator Setting AC16/550/PEEP10 AC/600/12/10 AC16/600/PEEP10 PEEP Blood Gas Inspired Oxygen 100 % 100 % 100 % Imaging Last Impressions Head CT 09/28/16 0000 Signed Impressions: Service Date/Time: Thursday, September 29, 2016 01:41 - CONCLUSION: No acute intracranial findings. Eric Villalobos MD Chest X-Ray 09/28/16 0000 Signed Impressions: Service Date/Time: Maria Teresa, September 28, 2016 21:14 - CONCLUSION: 1. ET tube tip at heidi. Suggest pullback by 3 cm. 2. No evidence of pneumothorax. Navin Feng MD Objective Remarks GENERAL: Critically ill-appearing male intubated and sedated SKIN: Warm and dry. HEAD: Normocephalic. EYES: Positive scleral icterus. No injection or drainage. NECK: Supple, trachea midline. No JVD or lymphadenopathy. CARDIOVASCULAR: Regular rate and rhythm systolic ejection murmur noted. RESPIRATORY: Breath sounds equal bilaterally. Mechanical ventilation GASTROINTESTINAL: Abdomen soft, protuberant, ascites noted. Normal active bowel sounds. 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 A/P Problem List: (1) Hepatic encephalopathy ICD Code: K72.90 Status: Acute (2) GI bleed ICD Code: K92.2 Status: Acute Assessment and Plan Plan by systems: Neurologic: Toxic encephalopathy Alcohol dependency Hyperammonemia Neurochecks per ICU protocol, currently GCS 3T on propofol, fentanyl, Versed infusion. Cisatracurium added for ventilator synchrony Ammonia level 114, continue lactulose 4 times a day, rifaximin added ammonia level 100 Follow up ammonia level daily CCT 09/29-no acute intracranial abnormalities F/U EEG Rifaximin added for hyperammonemia Respiratory: Acute hypoxic respiratory failure Maintain O2 sat greater than 92% FIO2 currently at 100%, Flolan added O2 sat remains high 80s to 92% Hold sedation holiday secondary to elevated requirements for oxygenation. Bronchodilators every 6 hours scheduled every 2 hours when necessary Cardiovascular: Elevated troponins Hypotension Aortic stenosis Troponins trending down 09/29 Echo -ejection fraction 60%, NRWA, aortic valve moderate stenosis, tricuspid valve mild regurgitation, LVH Maintain MAP greater than 65mmHg Vasopressor support Norepinephrine currently @ 12 mcgs Follow-up limited 2-D echo for bubble study, rule out hepatopulmonary syndrome Renal: Maintain Chi Monitor bladder pressures every 4 hours. Current pressure 5 Begin Albumin 25% every 8 hours,creatinine 1.1, BUN 33 -- Strict I/Os FEN/GI: End-stage liver disease Portal hypertension Cirrhosis Hepatitis C Melena Hematemesis Upper GI bleed secondary to alcoholic liver cirrhosis Moderate ascites Continue IV fluids normal saline 125/hour MELD score 15 GI consult appreciated recommendations CT abdomen and pelvis- Continue Protonix, octreotide infusions OGT to low intermittent wall suction-monitor output Palliative care consulted Plan for paracentesis-post correction of INR 1.5, and platelet count of 66, will transfuse 2 units of FFP and one 6 pack of platelets prior to procedure Heme/ID: Acute blood loss anemia Coagulopathy secondary to end-stage liver cirrhosis Monitor serial H&H Monitor coags-09/30 INR 1.5 Rocephin q 24 prophylactic Endocrine: Hyperglycemia of critical illness -- SSI Prophylaxis: GI Prophylaxis Protonix and octreotide infusion DVT Prophylaxis -- SCDs No pharmacological DVT prophylaxis in the setting of upper GI bleeding Lines: Refer IVs 2, central line 09/30, arterial line 09/30 Dispo: Discussed with BONER MEAT at bedside. This patient remains critically ill with one or more organ systems which are or may become a threat to life. I have spent in excess of 60 minutes discontinuously in the care and management of this patient. This time is exclusive of procedures, and includes, but is not limited to, evaluation of the patient, review of the medical record, discussions with family, consultants, nursing staff, or respiratory therapy, and documentation in the medical record. Physician Florence Stone Problem Qualifiers (1) GI bleed: Qualified Code: K92.1 - Gastrointestinal hemorrhage with melena Florence Stone MD Sep 30, 2016 09:49
[2016-09-30] MEDS ORDERED: ALBUMIN HUMAN 5% 12.5 GM/250 ML BOTTLE IV SCH (10:00)
[2016-09-30] MEDS: ARTIFICIAL TEARS OPTH SOLN 15 ML BTL EACH EYE SCH ×2 (10:08→13:37)
[2016-09-30] MEDS: SODIUM CHLORIDE 0.9% FLUSH 5 ML FLUSH IV FLUSH SCH ×2 (10:09→21:13)
[2016-09-30] MEDS: ALBUMIN HUMAN 25% 12.5 GM/50 ML BAGP IV SCH ×2 (11:00→17:22)
[2016-09-30 11:39] LABS: BLOOD GAS BASE EXCESS -5.1 mmol/L (-2-2); BLOOD GAS CARBOXYHEMOGLOBIN 1.7 % (0-4); BLOOD GAS HCO3 22 mmol/L (22-26); BLOOD GAS METHEMOGLOBIN 1.1 % (0-2); BLOOD GAS O2 HGB SATURATION 89 % (90-100); BLOOD GAS PCO2 56 mmHg (38-42); BLOOD GAS PO2 74 mmHg (61-120); BLOOD GAS TOTAL HGB 9.6 G/DL (12.0-16.0); TEMP CORR TO 98.6
[2016-09-30 11:40] LABS: CRITICAL VALUE YES; DRAW SITE ALINE; FIO2 100 %; OXYGEN DEVICE VENT; STAT NO
--- NOTE | 2016-09-30 12:21 | GIPROC ---
[facility] [address] [facility]. [facility], [address] EGD PROCEDURE REPORT EXAM DATE: 09/30/2016 PATIENT NAME: Yonis Thacker MR #: [id number] BIRTHDATE: 1965 ATTENDING: Allyson Boyce MD ORDER #: [id number] STOCK RECEIVER: Genaro Cole and Carlos Hugo STATUS: inpatient INDICATIONS: The patient is a 50 yr old male here for an EGD due to hematochezia PROCEDURE PERFORMED: EGD, diagnostic MEDICATIONS: Per Anesthesia and None. TOPICAL ANESTHETIC: CONSENT: The patient understands the risks and benefits of the procedure and understands that these risks include, but are not limited to: sedation, allergic reaction, infection, perforation and/or bleeding. Alternative means of evaluation and treatment include, among others: physical exam, x-rays, and/or surgical intervention. The patient elects to proceed with this endoscopic procedure. medical equipment was checked for proper function. Hand hygiene and appropriate measures for infection prevention was taken. After the risks, benefits and alternatives of the procedure were thoroughly explained, Informed consent was verified, confirmed and timeout was successfully executed by the treatment team. The patient was anesthetized with topical anesthesia and the Pentax EG-[id number] endoscope was introduced through the mouth and advanced to the pylorus. Retroflexed views revealed no abnormalities The gastroscope was then slowly withdrawn and removed. ESOPHAGUS: There was LA Class B esophagitis noted. 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 The varices were not bleeding. There was evidence of prior scarring. STOMACH: There was a large amount of residual food seen in the gastric body. Due to the residual food, complete mucosal examination could not be performed. ADVERSE EVENTS: There were no complications. IMPRESSIONS: 1. There was LA Class B esophagitis noted 2. Food residue in the gastric body 3. Retroflexed views revealed no abnormalities RECOMMENDATIONS: 1. Continue PPI 2. ICU monitoring 3. Monitor labs. Continue protonix/octreotide PATIENT CONDITION: stable DISPOSITION: Inpatient REPEAT EXAM: Return 4 days EGD Allyson Boyce MD eSigned: Allyson Boyce MD 09/30/2016 12:04 PM cc: [id number]
[2016-09-30 12:51] LABS: HEMATOCRIT 29.7 % (39.0-51.0); REVIEW FLAG FINAL
--- NOTE | 2016-09-30 12:56 | ECHLIM ---
Study Study Date:09/30/2016 STUDY CONCLUSIONS SUMMARY - Left ventricle: The cavity size was normal. Wall thickness was increased in a pattern of mild LVH. Systolic function was normal. The estimated ejection fraction was in the range of 55% to 60%. Wall motion was normal; there were no regional wall motion abnormalities. - Atrial septum: No defect or patent foramen ovale was identified. There was no atrial level shunt. If LV function is below 40, please consider prescribing an ACEI or ARB or document rationale for non-use. PROCEDURE DATA Procedure: Transthoracic echocardiography. Image quality was good. Scanning was performed from the parasternal, apical, and subcostal acoustic windows. Intravenous contrast (agitated saline) was administered. Study completion: The patient tolerated the procedure well. Transthoracic echocardiography. M-mode, limited 2D, limited spectral Doppler, and color Doppler. CARDIAC ANATOMY LEFT VENTRICLE: The cavity size was normal. Wall thickness was increased in a pattern of mild LVH. Systolic function was normal. The estimated ejection fraction was in the range of 55% to 60%. Wall motion was normal; there were no regional wall motion abnormalities. AORTIC VALVE: Trileaflet; normal thickness leaflets. Doppler: Transvalvular velocity was within the normal range. There was no stenosis. No regurgitation. AORTA: Aortic root: The aortic root was normal in size. MITRAL VALVE: Structurally normal valve. LEFT ATRIUM: The atrium was normal in size. ATRIAL SEPTUM: No defect or patent foramen ovale was identified. There was no atrial level shunt. RIGHT VENTRICLE: The cavity size was normal. Wall thickness was normal. PULMONIC VALVE: Doppler: Transvalvular velocity was within the normal range. There was no evidence for stenosis. No regurgitation. TRICUSPID VALVE: Structurally normal valve. RIGHT ATRIUM: The atrium was normal in size. PERICARDIUM: There was no pericardial effusion. Prepared and signed by Carlton Murdock [id number]
[2016-09-30] MEDS: DOCUSATE SODIUM 100 MG/10 ML UDC G-TUBE SCH ×2 (13:33→21:13)
--- NOTE | 2016-09-30 13:50 | EKG ---
Date Performed: 09/30/2016 Time Performed: 02:02:02 PTAGE: 50 years EKG: Sinus rhythm . Possible anteroseptal infarct - age undetermined Inferior/lateral ST-T changes suggest myocardial i njury/ischemia Abnormal ECG PREVIOUS TRACING : 09/28/2016 18.55 DOCTOR: César Tapia Interpretating Date/Time 09/30/2016 13:47:58
--- NOTE | 2016-09-30 16:17 | HHI.HCPN ---
Reason for visit a. To assist with evaluation and management of symptoms including: Encephalopathy, pain, dyspnea b. To assist medical decision maker(s) with: better understanding of current medical conditions; weighing benefits/burdens of medical treatment options; making medical treatment decisions. . (Gisel Boss) Subjective/Interval History Patient was seen and assessed in [facility] rm 500. He remains intubated on mechanical ventilator, sedated on Diprivan, Fentanyl and Versed. On Nimbex. Patient developed increased difficulty with oxygenation and hypotension overnight. He was started on norepinephrine to maintain his blood pressure. FiO2 currently at 100%, Flolan was added. Oxygen saturation remains the high 80slow 90s. Follow-up chest x-ray on 09/30/16 showed diffuse consolidation likely representing diffuse process such as edema, has clearly worsened since previous exam. CT abdomen/pelvis on 09/29/16 showed a cirrhotic liver with a large amount of ascites; anasarca with edema seen throughout the subcutaneous tissues. Mild bilateral pleural effusions with areas of atelectasis versus consolidation at the lower lobes bilaterally. Splenomegaly likely reflecting portal hypertension and liver disease. An EGD was done this morning. Postoperative diagnoses include grade 1 esophageal varices with no active bleeding; esophagitis. Patient will remain on Protonix and Octreotide. Follow-up EGD and 4 days. Follow-up echocardiogram for bubble study to rule out hepatopulmonary syndrome negative. EF 55% to 60%. Plan for bedside paracentesis after patient is transfused with 2 units of FFP and platelets to correct INR of 1.5 and platelet count of 66. . Family/friend interactions Spoke with patient's girlfriend and her friend at patient bedside and privately and the family conference room. Update was provided on the patient's clinical condition. Spoke with patient's estranged via telephone, they have been for 10+ years but never legally . Both verbalize understanding that the patient is critically ill and may not survive this hospitalization, considering CODE STATUS at this time. . (Gisel Boss) Advance Directives Advance Directive Specifics Health Care Surrogate(s): Not applicable . Documented care wishes: No documented care wishes were completed . Significant change in goals: Considering CODE STATUS at this time. Otherwise, goals remain aggressive. . (Vesely,Gisel H. [employer]) Objective Vital Signs Date Time Temp Pulse Resp B/P Pulse Ox O2 Delivery O2 Flow Rate FiO2 09/30/16 14:46 91 100 09/30/16 12:44 92 100 09/30/16 10:00 101 09/30/16 08:30 96 100 09/30/16 08:00 98.6 117 12 107/58 90 09/30/16 08:00 117 09/30/16 08:00 100 09/30/16 06:00 96 09/30/16 04:05 94 100 09/30/16 04:00 98.6 96 20 86/50 96 09/30/16 04:00 96 09/30/16 04:00 100 09/30/16 03:11 93 100 09/30/16 02:00 100 09/30/16 01:23 100 80 09/30/16 01:20 97 80 09/30/16 00:00 70 09/30/16 00:00 98.5 100 18 106/53 100 09/29/16 22:03 97 40 09/29/16 22:00 100 09/29/16 20:00 45 09/29/16 20:00 70 09/29/16 20:00 98.3 70 18 108/55 98 09/29/16 19:05 99 40 09/29/16 18:00 73 09/29/16 16:00 78 09/29/16 16:00 98.4 78 16 102/51 95 09/29/16 16:00 45 09/29/16 15:42 96 40 Intake & Output 09/30/16 09/30/16 07:00 19:00 Intake Total 3173 ml Output Total 1100 ml Balance 2073 ml Intake IV Total 3113 ml Other 60 ml Output Urine Total 800 ml Gastric Drainage Total 300 ml . Physical Exam CONSTITUTIONAL/GENERAL: This is an adequately nourished, male patient patient, in no apparent distress. TUBES/LINES/DRAINS:PIV x 5, ETT, OGT, Chi, SCDs,IJ Central Line, Radial Art Line. SKIN: Patient is jaundice Ecchymoses on upper extremities. No wounds seen anteriorly. Skin temperature appropriate. Not diaphoretic. HEAD: Atraumatic. Normocephalic. EYES: + scleral icterus. No injection or drainage.. ENT: Unable to assess hearing. Nose without bleeding or purulent drainage. NECK: Trachea midline. CARDIOVASCULAR: Regular rate and rhythm. + Murmur. RESPIRATORY/CHEST: Patient intubated on mechanical ventilator. Wheezing with scattered rhonchi. GASTROINTESTINAL: Abdomen is distended. Bowel sounds are hypoactive. GENITOURINARY: Without palpable bladder distension. Chi catheter in place. MUSCULOSKELETAL: Extremities without clubbing or mottling. Generalized edema, all extremities with 2+/3+ pitting edema LYMPHATICS: No palpable cervical or supraclavicular adenopathy. NEUROLOGICAL: Patient is sedated and paralyzed. PSYCHIATRIC: Unable to assess given patient's clinical condition. . (Gisel Boss) Diagnostic Tests Laboratory Laboratory Tests Test 09/28/16 09/28/16 09/28/16 09/28/16 20:20 20:50 21:38 22:42 White Blood Count 16.4 TH/MM3 (4.0-11.0) Red Blood Count 3.49 MIL/MM3 (4.50-5.90) Hemoglobin 11.4 GM/DL (13.0-17.0) Hematocrit 33.1 % (39.0-51.0) Mean Corpuscular Volume 94.7 FL (80.0-100.0) Mean Corpuscular Hemoglobin 32.6 PG (27.0-34.0) Mean Corpuscular Hemoglobin 34.4 % Concent (32.0-36.0) Red Cell Distribution Width 13.9 % (11.6-17.2) Platelet Count 124 TH/MM3 (150-450) Mean Platelet Volume 10.5 FL (7.0-11.0) Neutrophils (%) (Auto) 84.9 % (16.0-70.0) Lymphocytes (%) (Auto) 7.3 % (9.0-44.0) Monocytes (%) (Auto) 7.3 % (0.0-8.0) Eosinophils (%) (Auto) 0.1 % (0.0-4.0) Basophils (%) (Auto) 0.4 % (0.0-2.0) Neutrophils # (Auto) 13.9 TH/MM3 (1.8-7.7) Lymphocytes # (Auto) 1.2 TH/MM3 (1.0-4.8) Monocytes # (Auto) 1.2 TH/MM3 (0-0.9) Eosinophils # (Auto) 0.0 TH/MM3 (0-0.4) Basophils # (Auto) 0.1 TH/MM3 (0-0.2) CBC Comment DIFF FINAL Differential Comment Prothrombin Time 16.3 SEC (9.8-11.6) Prothromb Time International 1.5 RATIO Ratio Activated Partial 33.0 SEC Thromboplast Time (24.3-30.1) Lactic Acid Level 4.6 mmol/L (0.4-2.0) Ammonia 100 MCMOL/L (11-32) Blood Type B POSITIVE Antibody Screen NEGATIVE Urine Color YELLOW (YELLW/STRAW) Urine Turbidity CLEAR (CLEAR) Urine pH 7.0 (5.0-8.5) Urine Specific [place] 1.031 (1.002-1.035) Urine Protein TRACE mg/dL (NEG-TRACE) Urine Glucose (UA) NEG mg/dL (NEG) Urine Ketones 10 mg/dL (NEG) Urine Occult Blood NEG (NEG) Urine Nitrite NEG (NEG) Urine Bilirubin NEG (NEG) Urine Urobilinogen 4.0 MG/DL (LESS THAN 2.0) Urine Leukocyte Esterase NEG (NEG) Urine RBC 1 /hpf (0-3) Urine WBC 2 /hpf (0-5) Urine Renal Epithelial Cells <1 /hpf (NONE) Urine Mucus FEW /lpf (OCC) Microscopic Urinalysis Comment CULT NOT INDICATED Blood Gas Puncture Site RT RADIAL Blood Gas Patient Temperature 98.6 Blood Gas HCO3 25 mmol/L (22-26) Blood Gas Base Excess 0.5 mmol/L (-2-2) Blood Gas Oxygen Saturation 98 % (90-100) Arterial Blood pH 7.38 (7.380-7.420) Arterial Blood Partial 43 mmHg (38-42) Pressure CO2 Arterial Blood Partial 281 mmHG Pressure O2 (61-120) Arterial Blood Oxygen Content 15.2 Vol % (12.0-20.0) Arterial Blood 1.5 % (0-4) Carboxyhemoglobin Arterial Blood Methemoglobin 0.5 % (0-2) Blood Gas Hemoglobin 10.5 G/DL (12.0-16.0) Oxygen Delivery Device VENTILATOR Blood Gas Ventilator Setting AC/16/550/PEEP 5 Blood Gas Inspired Oxygen 100 % Troponin I 0.56 NG/ML (0.02-0.05) Sodium Level 140 MEQ/L (136-145) Potassium Level 4.4 MEQ/L (3.5-5.1) Chloride Level 102 MEQ/L (98-107) Carbon Dioxide Level 25.7 MEQ/L (21.0-32.0) Anion Gap 12 MEQ/L (5-15) Blood Urea Nitrogen 20 MG/DL (7-18) Creatinine 0.72 MG/DL (0.60-1.30) Estimat Glomerular Filtration 116 ML/MIN Rate (>89) Random Glucose 135 MG/DL (74-106) Calcium Level 8.2 MG/DL (8.5-10.1) Total Bilirubin 3.7 MG/DL (0.2-1.0) Aspartate Amino Transf 75 U/L (15-37) (AST/SGOT) Alanine Aminotransferase 16 U/L (12-78) (ALT/SGPT) Alkaline Phosphatase 159 U/L (45-117) Total Protein 6.8 GM/DL (6.4-8.2) Albumin 2.4 GM/DL (3.4-5.0) Lipase 396 U/L (73-393) Ethyl Alcohol Level LESS THAN 3 MG/DL (0-5) Test 09/28/16 09/29/16 09/29/16 09/29/16 23:15 00:50 05:20 06:24 Lactic Acid Level 5.1 mmol/L 2.7 mmol/L (0.4-2.0) (0.4-2.0) Nasal Screen MRSA (PCR) NEGATIVE (NEGATIVE) White Blood Count 15.8 TH/MM3 (4.0-11.0) Red Blood Count 2.99 MIL/MM3 (4.50-5.90) Hemoglobin 9.7 GM/DL (13.0-17.0) Hematocrit 29.1 % (39.0-51.0) Mean Corpuscular Volume 97.1 FL (80.0-100.0) Mean Corpuscular Hemoglobin 32.3 PG (27.0-34.0) Mean Corpuscular Hemoglobin 33.3 % Concent (32.0-36.0) Red Cell Distribution Width 14.1 % (11.6-17.2) Platelet Count 80 TH/MM3 (150-450) Mean Platelet Volume 10.4 FL (7.0-11.0) Neutrophils (%) (Auto) 80.6 % (16.0-70.0) Lymphocytes (%) (Auto) 10.7 % (9.0-44.0) Monocytes (%) (Auto) 8.2 % (0.0-8.0) Eosinophils (%) (Auto) 0.2 % (0.0-4.0) Basophils (%) (Auto) 0.3 % (0.0-2.0) Neutrophils # (Auto) 12.7 TH/MM3 (1.8-7.7) Lymphocytes # (Auto) 1.7 TH/MM3 (1.0-4.8) Monocytes # (Auto) 1.3 TH/MM3 (0-0.9) Eosinophils # (Auto) 0.0 TH/MM3 (0-0.4) Basophils # (Auto) 0.1 TH/MM3 (0-0.2) CBC Comment AUTO DIFF Differential Comment AUTO DIFF CONFIRMED Platelet Estimate LOW (NORMAL) Platelet Morphology Comment NORMAL (NORMAL) Ovalocytes 1+ (NORMAL) Sodium Level 141 MEQ/L (136-145) Potassium Level 4.4 MEQ/L (3.5-5.1) Chloride Level 104 MEQ/L (98-107) Carbon Dioxide Level 28.4 MEQ/L (21.0-32.0) Anion Gap 9 MEQ/L (5-15) Blood Urea Nitrogen 22 MG/DL (7-18) Creatinine 0.63 MG/DL (0.60-1.30) Estimat Glomerular Filtration 135 ML/MIN Rate (>89) Random Glucose 134 MG/DL (74-106) Calcium Level 8.1 MG/DL (8.5-10.1) Phosphorus Level 3.3 MG/DL (2.5-4.9) Magnesium Level 1.6 MG/DL (1.5-2.5) Total Bilirubin 2.7 MG/DL (0.2-1.0) Aspartate Amino Transf 79 U/L (15-37) (AST/SGOT) Alanine Aminotransferase 15 U/L (12-78) (ALT/SGPT) Alkaline Phosphatase 130 U/L (45-117) Ammonia 114 MCMOL/L (11-32) Total Creatine Kinase 475 U/L (39-308) Creatine Kinase MB 15.8 NG/ML (0.5-3.6) Creatine Kinase MB % 3.3 % (0.0-4.0) Total Protein 6.3 GM/DL (6.4-8.2) Albumin 2.4 GM/DL (3.4-5.0) Blood Gas Puncture Site LT RADIAL Blood Gas Patient Temperature 98.6 Blood Gas HCO3 28 mmol/L (22-26) Blood Gas Base Excess 2.8 mmol/L (-2-2) Blood Gas Oxygen Saturation 94 % (90-100) Arterial Blood pH 7.38 (7.380-7.420) Arterial Blood Partial 48 mmHg (38-42) Pressure CO2 Arterial Blood Partial 93 mmHg Pressure O2 (61-120) Arterial Blood Oxygen Content 12.6 Vol % (12.0-20.0) Arterial Blood 1.9 % (0-4) Carboxyhemoglobin Arterial Blood Methemoglobin 0.8 % (0-2) Blood Gas Hemoglobin 9.4 G/DL (12.0-16.0) Oxygen Delivery Device VENTILATOR Blood Gas Ventilator Setting AC/RR16/VT550/PEEP5 Blood Gas Inspired Oxygen 45 % Test 09/29/16 09/29/16 09/29/16 09/29/16 08:06 11:45 13:28 17:49 Troponin I 1.34 NG/ML 1.30 NG/ML (0.02-0.05) (0.02-0.05) Hemoglobin 8.6 GM/DL 8.2 GM/DL (13.0-17.0) (13.0-17.0) Hematocrit 25.8 % 24.4 % (39.0-51.0) (39.0-51.0) Lactic Acid Level 1.8 mmol/L (0.4-2.0) Test 09/29/16 09/30/16 09/30/16 09/30/16 23:25 01:05 02:50 03:40 White Blood Count 16.4 TH/MM3 15.8 TH/MM3 (4.0-11.0) (4.0-11.0) Red Blood Count 2.84 MIL/MM3 2.54 MIL/MM3 (4.50-5.90) (4.50-5.90) Hemoglobin 9.1 GM/DL 8.1 GM/DL (13.0-17.0) (13.0-17.0) Hematocrit 27.9 % 25.3 % (39.0-51.0) (39.0-51.0) Mean Corpuscular Volume 98.5 FL 99.6 FL (80.0-100.0) (80.0-100.0) Mean Corpuscular Hemoglobin 32.2 PG 32.0 PG (27.0-34.0) (27.0-34.0) Mean Corpuscular Hemoglobin 32.7 % 32.1 % Concent (32.0-36.0) (32.0-36.0) Red Cell Distribution Width 14.4 % 14.6 % (11.6-17.2) (11.6-17.2) Platelet Count 99 TH/MM3 66 TH/MM3 (150-450) (150-450) Mean Platelet Volume 10.2 FL 10.7 FL (7.0-11.0) (7.0-11.0) Neutrophils (%) (Auto) % (16.0-70.0) 87.1 % (16.0-70.0) Lymphocytes (%) (Auto) % (9.0-44.0) 5.0 % (9.0-44.0) Monocytes (%) (Auto) % (0.0-8.0) 7.3 % (0.0-8.0) Eosinophils (%) (Auto) % (0.0-4.0) 0.2 % (0.0-4.0) Basophils (%) (Auto) % (0.0-2.0) 0.4 % (0.0-2.0) Neutrophils # (Auto) TH/MM3 13.8 TH/MM3 (1.8-7.7) (1.8-7.7) Lymphocytes # (Auto) TH/MM3 0.8 TH/MM3 (1.0-4.8) (1.0-4.8) Monocytes # (Auto) TH/MM3 (0-0.9) 1.2 TH/MM3 (0-0.9) Eosinophils # (Auto) TH/MM3 (0-0.4) 0.0 TH/MM3 (0-0.4) Basophils # (Auto) TH/MM3 (0-0.2) 0.1 TH/MM3 (0-0.2) CBC Comment AUTO DIFF AUTO DIFF Differential Total Cells 100 100 Counted Neutrophils % (Manual) 60 % (16-70) 86 % (16-70) Band Neutrophils % 1 % (0-6) 2 % (0-6) Lymphocytes % 22 % (9-44) 6 % (9-44) Monocytes % 16 % (0-8) 6 % (0-8) Basophils % 1 % (0-2) Neutrophils # (Manual) 10.0 TH/MM3 13.9 TH/MM3 (1.8-7.7) (1.8-7.7) Differential Comment FINAL DIFF FINAL DIFF MANUAL MANUAL Platelet Estimate LOW (NORMAL) LOW (NORMAL) Platelet Morphology Comment NORMAL NORMAL (NORMAL) (NORMAL) Polychromasia 3.8 % (0.0-1.9) 2.5 % (0.0-1.9) Ovalocytes 1+ (NORMAL) Helmet Cells OCC (NORMAL) OCC (NORMAL) Acanthocytes OCC (NORMAL) Blood Gas Puncture Site LT BRACHIAL LT BRACHIAL Blood Gas Patient Temperature 98.6 98.6 Blood Gas HCO3 25 mmol/L 26 mmol/L (22-26) (22-26) Blood Gas Base Excess -2.5 mmol/L -1.2 mmol/L (-2-2) (-2-2) Blood Gas Oxygen Saturation 97 % (90-100) 88 % (90-100) Arterial Blood pH 7.20 7.18 (7.380-7.420) (7.380-7.420) Arterial Blood Partial 66 mmHg (38-42) 74 mmHg (38-42) Pressure CO2 Arterial Blood Partial 193 mmHg 75 mmHg Pressure O2 (61-120) (61-120) Arterial Blood Oxygen Content 12.0 Vol % 10.8 Vol % (12.0-20.0) (12.0-20.0) Arterial Blood 1.6 % (0-4) 1.5 % (0-4) Carboxyhemoglobin Arterial Blood Methemoglobin 1.1 % (0-2) 1.0 % (0-2) Blood Gas Hemoglobin 8.5 G/DL 8.6 G/DL (12.0-16.0) (12.0-16.0) Oxygen Delivery Device VENTILATOR VENTILATOR Blood Gas Ventilator Setting AC16/550/PEEP10 AC/600/12/10 PEEP Blood Gas Inspired Oxygen 100 % 100 % Sodium Level 141 MEQ/L (136-145) Potassium Level 4.4 MEQ/L (3.5-5.1) Chloride Level 105 MEQ/L (98-107) Carbon Dioxide Level 28.2 MEQ/L (21.0-32.0) Anion Gap 8 MEQ/L (5-15) Blood Urea Nitrogen 33 MG/DL (7-18) Creatinine 1.13 MG/DL (0.60-1.30) Estimat Glomerular Filtration 69 ML/MIN (>89) Rate Random Glucose 112 MG/DL (74-106) Calcium Level 8.0 MG/DL (8.5-10.1) Phosphorus Level 4.4 MG/DL (2.5-4.9) Magnesium Level 1.8 MG/DL (1.5-2.5) Total Bilirubin 3.0 MG/DL (0.2-1.0) Aspartate Amino Transf 80 U/L (15-37) (AST/SGOT) Alanine Aminotransferase 13 U/L (12-78) (ALT/SGPT) Alkaline Phosphatase 100 U/L (45-117) Ammonia 112 MCMOL/L (11-32) Total Protein 6.3 GM/DL (6.4-8.2) Albumin 3.3 GM/DL (3.4-5.0) Test 09/30/16 09/30/16 09/30/16 09/30/16 04:03 04:35 08:12 09:33 Blood Gas Puncture Site RT RADIAL Blood Gas Patient Temperature 98.6 Blood Gas HCO3 24 mmol/L (22-26) Blood Gas Base Excess -1.1 mmol/L (-2-2) Blood Gas Oxygen Saturation 89 % (90-100) Arterial Blood pH 7.31 (7.380-7.420) Arterial Blood Partial 49 mmHg (38-42) Pressure CO2 Arterial Blood Partial 70 mmHg Pressure O2 (61-120) Arterial Blood Oxygen Content 10.3 Vol % (12.0-20.0) Arterial Blood 1.8 % (0-4) Carboxyhemoglobin Arterial Blood Methemoglobin 1.0 % (0-2) Blood Gas Hemoglobin 8.2 G/DL (12.0-16.0) Oxygen Delivery Device VENTILATOR Blood Gas Ventilator Setting AC16/600/PEEP10 Blood Gas Inspired Oxygen 100 % Blood Type B POSITIVE Crossmatch Leukocyte-Reduced Red Blood Cells Blood Bank Comment Prothrombin Time 17.4 SEC (9.8-11.6) Prothromb Time International 1.5 RATIO Ratio Activated Partial 44.1 SEC Thromboplast Time (24.3-30.1) Test 09/30/16 09/30/16 11:20 12:24 Blood Gas Puncture Site MARV Blood Gas Patient Temperature 98.6 Blood Gas HCO3 22 mmol/L (22-26) Blood Gas Base Excess -5.1 mmol/L (-2-2) Blood Gas Oxygen Saturation 89 % (90-100) Arterial Blood pH 7.21 (7.380-7.420) Arterial Blood Partial 56 mmHg (38-42) Pressure CO2 Arterial Blood Partial 74 mmHg Pressure O2 (61-120) Arterial Blood Oxygen Content 12.0 Vol % (12.0-20.0) Arterial Blood 1.7 % (0-4) Carboxyhemoglobin Arterial Blood Methemoglobin 1.1 % (0-2) Blood Gas Hemoglobin 9.6 G/DL (12.0-16.0) Oxygen Delivery Device VENT Blood Gas Ventilator Setting AC/16/600/10/100 Blood Gas Inspired Oxygen 100 % Hemoglobin 9.3 GM/DL (13.0-17.0) Hematocrit 29.7 % (39.0-51.0) . (Gisel Boss) Result Diagram: 09/30/16 1224 09/30/16 0340 Microbiology Microbiology Date/Time Procedure Status Source Growth 09/28/16 22:30 Aerobic Blood Culture - Preliminary Resulted Blood Peripheral NO GROWTH IN 2 DAYS 09/28/16 22:30 Anaerobic Blood Culture - Preliminary Resulted Blood Peripheral NO GROWTH IN 2 DAYS 09/28/16 22:41 Aerobic Blood Culture - Preliminary Resulted Blood Peripheral NO GROWTH IN 2 DAYS 09/28/16 22:41 Anaerobic Blood Culture - Preliminary Resulted Blood Peripheral NO GROWTH IN 2 DAYS . Imaging Last 72 hours Impressions Chest X-Ray 09/30/16 0000 Signed Impressions: Service Date/Time: September 08:47 - CONCLUSION: 1. Diffuse consolidation likely representing diffuse process such as edema. This has clearly worsened since the prior exam. 2. New right internal jugular central line in good position. A pneumothorax is not seen. Mike Hallman MD Abdomen/Pelvis CT 09/29/16 1530 Signed Impressions: Service Date/Time: Thursday, September 29, 2016 16:20 - CONCLUSION: 1. Cirrhotic liver with a large amount of ascites. There also appears to be anasarca with edema seen throughout the subcutaneous tissues. 2. Mild bilateral pleural effusions with accompanying areas of atelectasis or consolidation at the lower lobes bilaterally. 3. Splenomegaly, this likely reflects portal hypertension and liver disease. Mike Hallman MD Chest X-Ray 09/29/16 0000 Signed Impressions: Service Date/Time: September 00:20 - CONCLUSION: Increased bilateral diffuse pulmonary opacity likely representing pulmonary edema. Eric Villalobos MD Head CT 09/28/16 0000 Signed Impressions: Service Date/Time: Thursday, September 29, 2016 01:41 - CONCLUSION: No acute intracranial findings. Eric Villalobos MD Chest X-Ray 09/28/16 0000 Signed Impressions: Service Date/Time: Wednesday, September 28, 2016 21:14 - CONCLUSION: 1. ET tube tip at heidi. Suggest pullback by 3 cm. 2. No evidence of pneumothorax. Navin Feng MD . Procedures 09/28/16: Intubation 09/28/16: OGT placement 09/30/16: Right IJ central line placement /: Right radial arterial catheter placement 09/30/16: EGD 09/30/16: Paracentesis 09/30/16: Transfused with 2 units FFP and platelets . (Gisel Boss) Assessment and Plan Disease Oriented Problem List: (1) Hepatic encephalopathy Comment: Ammonia level of 100 on admission. Patient receiving lactulose 4 times daily. (2) GI bleed Comment: 09/30/16 EGD showing esophageal varices with no active bleeding, esophagitis. Patient to remain on Protonix and octreotide infusion. Follow-up EGD in 4 days. (3) Hepatitis C (4) Liver cirrhosis, alcoholic (5) Acute respiratory failure (6) Coagulopathy Comment: Coagulopathy secondary to end-stage liver cirrhosis. Patient is being transfused with 2 units of FFP and platelets to correct INR of 1.5 and platelet count of 66 . (7) Troponin level elevated Comment: Troponin on admission was 0.56. Serial troponin levels trending downward. (8) End stage liver disease Comment: MELD 15 . Symptom Scale: (1) Pain 0-10 Scale: Unable to quantify (2) Encephalopathy 0-10 Scale: Unable to quantify Comment: Encephalopathy is likely secondary to end-stage liver disease. Ammonia level on admission was 100, currently on 09/30/16 ammonia level has increased to 112. Patient remains on lactulose 4 times a day. (3) Dyspnea 0-10 Scale: Unable to quantify Comment: Patient developed increased difficulty with oxygenation and hypotension overnight. He was started on norepinephrine to maintain his blood pressure. FiO2 currently at 100%, Flolan was added. Oxygen saturation remains the high 80slow 90s. Follow-up chest x-ray on 09/30/16 showed diffuse consolidation likely representing diffuse process such as edema, has clearly worsened since previous exam. Pertinent Non-Medical Issues Psychosocial: Patient's familial history is largely unknown. Patient's estranged reported his father had dementia but was unable to provide further information. Spiritual: None restoration. Legal:The patient has been with his significant other (Cris) for approximately 11 years. However, he never legally his (Alice Thacker). He also has an adult daughter (Daphne). Per [place] statutes, in the absence of written advanced directives healthcare proxy falls to the patient's legal , Alice Thacker living in [facility]. Ethical issues impacting care: No known ethical issues impacting care at this time. . Important Contacts Cris Johan, significant other: [phone] Alice Gomez, estranged /HCP: [phone] . Prognosis Patient is a 50-year-old male with a past medical history of hepatitis C, cirrhosis, end-stage liver disease and GI bleeds. He was admitted with hepatic encephalopathy and GI bleed. Patient's condition worsened overnight when he developed increased difficulty with oxygenation and hypotension. He is now on pressors to maintain his blood pressure. On Nimbex. FiO2 at 100% on Flolan with oxygen saturations in the high 80s to low 90s. Patient remains critically ill with multiorgan dysfunction, despite multiple aggressive interventions. The patient may not survive this hospitalization. . Code Status: Full Code Plan * FULL CODE * Decision-making: The patient has been with his significant other (Cris) for approximately 11 years. However, he never legally his (Alice Thacker). He also has an adult daughter (Daphne). Per [place] statutes, in the absence of written advanced directives healthcare proxy falls to the patient 's legal , Alice Thacker who currently lives in [place] - it is not the patient's significant other (Cris) who is at the bedside. Palliative care spoke to patient's (Alice Thacker) who is willing to act and the role of healthcare proxy. * Goals: Goals remain aggressive at this time. * Patient's legal , Alice Thacker, has given permission to speak with patient's (Cris) significant other/answer questions. Both Alice and Cris were given patient's pin number. * Symptom managementencephalopathy: Encephalopathy is likely secondary to end- stage liver disease. Ammonia level on admission was 100, currently on 09/30/16 ammonia level has increased to 112. Patient remains on lactulose 4 times a day. Continue to monitor levels daily. * Symptom managementdyspnea: Patient developed increased difficulty with oxygenation and hypotension overnight. He was started on norepinephrine to maintain his blood pressure. FiO2 currently at 100%, Flolan was added. Oxygen saturation remains the high 80slow 90s. Follow-up chest x-ray on 09/30/16 showed diffuse consolidation likely representing diffuse process such as edema, has clearly worsened since previous exam. * Spoke with patient's girlfriend and her friend at patient bedside and privately and the family conference room. Update was provided on the patient's clinical condition. Spoke with patient's estranged via telephone, they have been for 10+ years but never legally . Both verbalize understanding that the patient is critically ill and may not survive this hospitalization, considering CODE STATUS at this time. . (Gisel Boss) Attestation To help prompt me to consider important information that might be impacting today's encounter and assessment, information from prior notes written by myself or my colleagues may have been "brought forward" into today's note. My signature on this note, however, is an attestation that I personally performed the exam, history, and/or decision-making noted today, and, unless otherwise indicated, the interactions with patient, family, and staff as well as the review of records all occurred today. I also attest that the listed assessment and stated plan reflect my best clinical judgment today based on the combination of historical information, prior notes, and today's exam/ interactions. When time spent is documented, it refers only to time spent today by the signer, or if indicated, combined time spent today by collaborating physician/nurse practitioner. . (Gisel Boss) Collaborating MD Comments Chart reviewed. Cased discussed with palliative care [employer]. Above [employer] note reviewed and I concur. . (Vishal Rivas MD) Gisel Boss Sep 30, 2016 16:17 Vishal Rivas MD December 13, 2016 13:17
--- NOTE | 2016-09-30 16:49 | PD.PROCEDR ---
Procedure Note Procedure Paracentesis Procedure Note INDICATION: Ascites, Cirrhosis with End Stage Liver Disease ATTENDING PHYSICIAN: Florence Stone M.D. Ultrasound used to dorita location: Yes CONSENT: Consent was obtained from / family prior to the procedure. Indications, risks, and benefits were explained at length. PROCEDURE SUMMARY: A time-out was performed. I wore a surgical cap, mask with protective eyewear, sterile gown and sterile gloves for the procedure. The area was cleansed and draped in usual sterile fashion using chlorhexidine scrub. Anesthesia was achieved with 1% lidocaine. The LLQ of the abdomen was prepped and draped in a sterile fashion using chlorhexidine scrub. 1% lidocaine was used to numb the skin, soft tissue and peritoneum. The paracentesis catheter was inserted and advanced with negative pressure until tristen colored fluid was aspirated. Approximately 60 mL of ascitic fluid was collected and sent for laboratory analysis/ cultures. The catheter was then connected to the vaccutainer and 10 liters of additional ascitic fluid were drained. The catheter was removed and no leaking was noted. A bandaid was placed over the puncture wound. The patient tolerated the procedure well without any immediate complications. Estimated blood loss was < 1 cc. Florence Stone MD Sep 30, 2016 16:49
[2016-09-30] MEDS ORDERED: EPOPROSTENOL NEB SOLUTION 40 NG/KG/MIN 100 ML NEB SCH ×2 (17:00)
--- NOTE | 2016-09-30 17:04 | HHI.HCPN ---
Discussed cardiopulmonary resuscitation and what it entails with patient's family including compressions, medications, cardioversion and intubation/ mechanical ventilation. Given the patient's clinical condition and multi system dysfunction, the patient's family has requested the patient's CODE STATUS be changed to an ALTERNATE CODE. The patient is currently intubated. But in the event the patient should go into cardiac arrest the family would like to allow the patient to pass peacefully and naturally at that time stating " He shouldn't have to go through anything more". CODE STATUS changed to ALTERNATE CODE - INTUBATION ONLY. (Gisel Boss) Chart reviewed. Cased discussed with palliative care COMMERCIAL TITLE EXAMINER. Above COMMERCIAL TITLE EXAMINER note reviewed and I concur. . (Vishal Rivas MD) Gisel Boss Sep 30, 2016 17:04 Vishal Rivas MD December 13, 2016 13:19
[2016-09-30 18:40] LABS: PERITONEAL LYMPHS 29 %; PERITONEAL MESOTHELIAL 2 %; PERITONEAL MONOS 3 %; PERITONEAL POLYS(SEGS) 66 %; PERITONEAL WBC 237 /MM3 (0-10)
[2016-09-30 19:42] LABS: HEMATOCRIT 30.2 % (39.0-51.0); MEAN CELL VOLUME 97.2 FL (80.0-100.0); MEAN CORPUSCULAR HEMOGLOBIN 30.5 PG (27.0-34.0); MEAN CORPUSCULAR HGB CONC 31.4 % (32.0-36.0); PLATELET COUNT 120 TH/MM3 (150-450); RED CELL DISTRIBUTION WIDTH 16.8 % (11.6-17.2); REVIEW FLAG FINAL; WHITE BLOOD COUNT 26.8 TH/MM3 (4.0-11.0)
[2016-09-30 20:12] LABS: INTERNATIONAL NORMALIZED RATIO 1.5 RATIO; PROTHROMBIN TIME - PATIENT 17.1 SEC (9.8-11.6)
[2016-09-30] MEDS: cefTRIAXone INJ 1,000 MG in SODIUM CHLORIDE 0.9% INJ 100 ML IV SCH (21:12)
[2016-09-30] MEDS ORDERED: VASOPRESSIN INJ 40 UNITS in DEXTROSE 5% IN WATER 100ML INJ 98 ML IV SCH ×2 (21:15)
[2016-09-30] MEDS ORDERED: DOBUTamine PREMIX DRIP 250 ML ONE (22:57)
[2016-09-30] MEDS ORDERED: DOBUTamine 250 MG/D5W 250 ML PREMIX DRIP IV SCH (23:00)
[2016-09-30] MEDS ORDERED: ALBUMIN HUMAN 5% 25 GM/500 ML BOTTLE IV ONE (23:15)
[2016-09-30] MEDS ORDERED: SODIUM BICARBONATE 8.4% INJ 150 MEQ in DEXTROSE 5% IN WATE 1000ML INJ 1,000 ML IV SCH ×2 (23:30)
[2016-10-01] MEDS ORDERED: EPOPROSTENOL NEB SOLUTION 30 NG/KG/MIN 100 ML NEB SCH ×2 (01:00)
[2016-10-01] MEDS ORDERED: EPOPROSTENOL NEB SOLUTION 20 NG/KG/MIN 100 ML NEB SCH ×2 (09:00)
[2016-10-01] MEDS ORDERED: EPOPROSTENOL NEB SOLUTION 10 NG/KG/MIN 100 ML NEB SCH ×2 (17:00)
--- NOTE | 2016-10-31 19:36 | HHI.DS ---
Discharge Summary Admission Date Sep 28, 2016 at 21:36 Discharge Date: Oct 01, 2016 Admitting Diagnosis GI bleed, hepatic encaphalopathy Brief History 50-year-old gentleman with past medical history of hepatitis C, chronic alcohol abuse, cirrhosis, previous upper GI bleed, presents today with altered mental status. He has been having distended abdomen for quite sometime time. He was found completely altered almost unresponsive by his significant other called EVAC. Per her statement patient was informed that he was going to 5 years ago if he continues to drink alcohol. He has been drinking daily until today. He was very altered and extremely agitated in the emergency department and was intubated for airway protection by ER attending. Hospital Course 50-year-old gentleman with past medical history of hepatitis C, chronic alcohol abuse, cirrhosis, previous upper GI bleed, presents today with altered mental status. He has been having distended abdomen for quite sometime time. He was found completely altered almost unresponsive by his significant other called EVAC. Per her statement patient was informed that he was going to 5 years ago if he continues to drink alcohol. He has been drinking daily until today. He was very altered and extremely agitated in the emergency department and was intubated for airway protection by ER attending. Subjective: 09/29:Afebrile. The patient maintains intubated and sedated. Noted approximately 150 cc's of coffee-ground emesis since admission to the ICU. Pending recommendations from GI which was consulted. The patient continues on octreotide and Protonix infusions, and lactulose for hyperammonemia. This a.m. abdomen appears protuberant, normoactive bowel sounds ,CT abdomen and pelvis are pending. 16: Overnight the patient was having increasing difficulty with oxygenation with peak pressures increasing. Somewhat felt to be due to auto PEEP. Multiple adjustments currently with mechanical ventilation the patient currently now is on Flolan, FiO2 of 100%. Possibly hepatopulmonary syndrome, bubble study being obtained. Possibly abdominal compartment syndrome from ascites, plan for correction of coagulation of INR 1.5 with FFP, and thrombocytopenia with platelet count of 66. We'll perform paracentesis at bedside secondary to the instability of transport to interventional radiology. The patient continues on sedation and paralytics, plan for endoscopy this a.m. patient continues on Protonix and octreotide infusion. The patient is hypotensive during the night, norepinephrine at 12mcgs. 10/01: The patient developed SB and then asystole. Time of 0017. Florence Stone MD Oct 31, 2016 19:35
--- NOTE | 2016-10-31 19:53 | HHI.DS ---
Summary Note Date of : Oct 01, 2016 Time Of : 0014 Admission Date Sep 28, 2016 at 21:36 Admitting Diagnosis GI bleed, hepatic encaphalopathy Diagnosis at Time of : (1) Liver cirrhosis, alcoholic ICD Code: K70.30 Diagnosis: Principal (2) Hepatitis C ICD Code: B19.20 Diagnosis: Principal (3) End stage liver disease ICD Code: K72.90 Diagnosis: Principal (4) Coagulopathy ICD Code: D68.9 Diagnosis: Principal (5) Acute respiratory failure ICD Code: J96.00 Diagnosis: Principal (6) Hepatic encephalopathy ICD Code: K72.90 Diagnosis: Principal (7) GI bleed ICD Code: K92.2 Diagnosis: Principal (8) Encephalopathy ICD Code: G93.40 Diagnosis: Principal (9) Troponin level elevated ICD Code: R74.8 Diagnosis: Secondary (10) Pain ICD Code: R52 Diagnosis: Secondary (11) ETOH abuse ICD Code: F10.10 Diagnosis: Secondary Brief History 50-year-old gentleman with past medical history of hepatitis C, chronic alcohol abuse, cirrhosis, previous upper GI bleed, presents today with altered mental status. He has been having distended abdomen for quite sometime time. He was found completely altered almost unresponsive by his significant other called EVAC. Per her statement patient was informed that he was going to 5 years ago if he continues to drink alcohol. He has been drinking daily until today. He was very altered and extremely agitated in the emergency department and was intubated for airway protection by ER attending. Imaging Last Impressions Head CT 09/28/16 0000 Signed Impressions: Service Date/Time: Thursday, September 29, 2016 01:41 - CONCLUSION: No acute intracranial findings. Eric Villalobos MD Chest X-Ray 09/28/16 0000 Signed Impressions: Service Date/Time: Wednesday, September 28, 2016 21:14 - CONCLUSION: 1. ET tube tip at heidi. Suggest pullback by 3 cm. 2. No evidence of pneumothorax. Navin Feng MD Hospital Course Remarks/Hospital Course 50-year-old gentleman with past medical history of hepatitis C, chronic alcohol abuse, cirrhosis, previous upper GI bleed, presents today with altered mental status. He has been having distended abdomen for quite sometime time. He was found completely altered almost unresponsive by his significant other called EVAC. Per her statement patient was informed that he was going to 5 years ago if he continues to drink alcohol. He has been drinking daily until today. He was very altered and extremely agitated in the emergency department and was intubated for airway protection by ER attending. Subjective: 09/29:Afebrile. The patient maintains intubated and sedated. Noted approximately 150 cc's of coffee-ground emesis since admission to the ICU. Pending recommendations from GI which was consulted. The patient continues on octreotide and Protonix infusions, and lactulose for hyperammonemia. This a.m. abdomen appears protuberant, normoactive bowel sounds ,CT abdomen and pelvis are pending. 09/30: Overnight the patient was having increasing difficulty with oxygenation with peak pressures increasing. Somewhat felt to be due to auto PEEP. Multiple adjustments currently with mechanical ventilation the patient currently now is on Flolan, FiO2 of 100%. Possibly hepatopulmonary syndrome, bubble study being obtained. Possibly abdominal compartment syndrome from ascites, plan for correction of coagulation of INR 1.5 with FFP, and thrombocytopenia with platelet count of 66. We'll perform paracentesis at bedside secondary to the instability of transport to interventional radiology. The patient continues on sedation and paralytics, plan for endoscopy this a.m. patient continues on Protonix and octreotide infusion. The patient is hypotensive during the night, norepinephrine at 12mcgs.Palliative care following. 10/01: During the night the patient became bradycardic and went into Asystole. Time of 0017. Florence Stone MD Oct 31, 2016 19:53
== END 2016-10-01 00:14 | disposition expired | DRG 441 ==
LOC: NEPA 19:52 → NEDA 21:36 → HIMW 09-29 00:20
PROVIDERS: ADMIT Internal Medicine Critical Care Medicine; ATTEND Internal Medicine Critical Care Medicine
PROC: 5A1935Z Respiratory Ventilation, Less than 24 Consecutive Hours (ICD-10-PCS; principal; 2016-09-28)
PROC: 0BH17EZ Insertion of Endotracheal Airway into Trachea, Via Natural or Artificial Opening (ICD-10-PCS; 2016-09-28)
PROC: 0D9670Z Drainage of Stomach with Drainage Device, Via Natural or Artificial Opening (ICD-10-PCS; 2016-09-28)
PROC: 0T9B70Z Drainage of Bladder with Drainage Device, Via Natural or Artificial Opening (ICD-10-PCS; 2016-09-28)
PROC: 0W9G3ZX Drainage of Peritoneal Cavity, Percutaneous Approach, Diagnostic (ICD-10-PCS; 2016-09-30)
PROC: 03HY32Z Insertion of Monitoring Device into Upper Artery, Percutaneous Approach (ICD-10-PCS; 2016-09-30)
PROC: 30233K1 Transfusion of Nonautologous Frozen Plasma into Peripheral Vein, Percutaneous Approach (ICD-10-PCS; 2016-09-30)
PROC: 30233N1 Transfusion of Nonautologous Red Blood Cells into Peripheral Vein, Percutaneous Approach (ICD-10-PCS; 2016-09-30)
PROC: 0DJ08ZZ Inspection of Upper Intestinal Tract, Via Natural or Artificial Opening Endoscopic (ICD-10-PCS; 2016-09-30)
PROC: 05HM33Z Insertion of Infusion Device into Right Internal Jugular Vein, Percutaneous Approach (ICD-10-PCS; 2016-09-30)
DX: K72.90 Hepatic failure, unspecified without coma (principal); J96.01 Acute respiratory failure with hypoxia; G93.49 Other encephalopathy; K92.0 Hematemesis; D68.9 Coagulation defect, unspecified; K76.6 Portal hypertension; I95.9 Hypotension, unspecified; D62 Acute posthemorrhagic anemia; K92.1 Melena; D69.6 Thrombocytopenia, unspecified; K70.31 Alcoholic cirrhosis of liver with ascites; I08.2 Rheumatic disorders of both aortic and tricuspid valves; I10 Essential (primary) hypertension; B18.2 Chronic viral hepatitis C; F10.20 Alcohol dependence, uncomplicated; K21.9 Gastro-esophageal reflux disease without esophagitis; D72.829 Elevated white blood cell count, unspecified; K20.9 Esophagitis, unspecified; F17.210 Nicotine dependence, cigarettes, uncomplicated; Z51.5 Encounter for palliative care; R74.8 Abnormal levels of other serum enzymes; R73.9 Hyperglycemia, unspecified; R16.1 Splenomegaly, not elsewhere classified; F12.90 Cannabis use, unspecified, uncomplicated; Z63.8 Other specified problems related to primary support group
CPT/HCPCS: 31500; 36430; 36556; 36600; 49082; 70450; 71010; 74177; 76937; 80053; 80307; 81001; 82042; 82140; 82150; 82550; 82552; 82805; 82945; 83605; 83615; 83690; 83735; 84100; 84157; 84484; 85007; 85014; 85018; 85025; 85027; 85610; 85730; 86850; 86900; 86901; 86920; 86927; 87040; 87070; 87205; 87641; 89051; 93005; 93306; 93308; 94002; 94003; 94640; 94664; 94799; 96365; 96375; C9113; J0330; J0696; J1250; J1325; J1940; J2250; J2354; J3010; J7030; J7040; J7050; J7070; P9016; P9017; P9035; P9045; P9047; Q9967